=== PATIENT | male | born 1975 | race Hispanic/Latino ===

== ENCOUNTER 2019-12-22 01:51 | Emergency (ER) | payer BC ==
[2019-12-22] MEDS ORDERED: SODIUM CHLORIDE 0.9% 1000ML 1,000 ML IV ONE (01:52)
[2019-12-22] MEDS ORDERED: ACETAMINOPHEN EXTRA STRENGTH 500 MG TABLET ONE (02:45)
[2019-12-22] MEDS ORDERED: POTASSIUM BICARB/CIT AC 25 MEQ TABLET.EFF ONE (04:07)
== END 2019-12-22 05:09 | disposition home or self-care (01) ==
LOC: EDH 01:51
DX: E86.0 Dehydration (principal); R55 Syncope and collapse; E87.6 Hypokalemia; R50.9 Fever, unspecified
CPT/HCPCS: 36415; 80053; 80305; 81003; 85025; 96360; 96361; 99283; J7030

== ENCOUNTER 2019-12-22 20:04 | Emergency (ER) | payer BC ==
[2019-12-22 20:43] LABS: APPEARANCE,URINE Clear (CLEAR); BILIRUBIN,URINE Negative (NEGATIVE); COLOR,URINE Yellow (YELLOW); GLUCOSE, URINE (UA) Negative (NEGATIVE); KETONES,URINE Negative (NEGATIVE); LEUKOCYTE ESTERASE ,URINE Negative (NEGATIVE); NITRATE,URINE Negative (NEGATIVE); OCCULT BLOOD,URINE Negative (NEGATIVE); PROTEIN,URINE Negative (NEGATIVE); UROBILINOGEN,URINE 0.2 mg/dL (0.2-1.0)
[2019-12-22 20:53] LABS: BASOPHILS % (AUTO) 0.1 % (0.0-5.0); EOSINOPHILS % (AUTO) 0.2 % (0.0-8.0); HEMATOCRIT 39.4 % (42-54); LYMPHOCYTES % (AUTO) 10.2 % (21.0-51.0); MEAN CORPUSCULAR HEMOGLOBIN 30.8 pg (27.0-33.0); MEAN CORPUSCULAR HGB CONC 33.2 g/dL (32.0-36.0); MEAN CORPUSCULAR VOLUME 92.7 fL (79-99); MONOCYTES % (AUTO) 4.6 % (3.0-13.0); NEUTROPHILS % (AUTO) 84.5 % (40.0-77.0); PLATELET COUNT (AUTO) 138 K/uL (130-400); RED BLOOD CELL COUNT(AUTO) 4.25 MIL/uL (4.50-6.20); RED CELL DISTRIBUTION WIDTH 12.9 % (11.0-15.5); WHITE BLOOD COUNT (AUTO) 8.1 K/uL (4.8-10.8)
[2019-12-22 20:58] LABS: AMPHET/METH SCREEN,URINE NEGATIVE (NEGATIVE); BARBITURATE SCREEN, URINE NEGATIVE (NEGATIVE); BENZODIAZEPINES SCREEN,URINE NEGATIVE (NEGATIVE); CANNABINOID SCREEN,URINE NEGATIVE (NEGATIVE); COCAINE SCREEN,URINE NEGATIVE (NEGATIVE); OPIATE SCREEN,URINE NEGATIVE (NEGATIVE); PHENCYCLIDINE SCREEN,URINE NEGATIVE (NEGATIVE)
[2019-12-22 21:12] LABS: POTASSIUM 4.3 mmol/L (3.5-5.1)
[2019-12-22 21:16] LABS: ALBUMIN 3.9 g/dL (3.5-5.0); BILIRUBIN,TOTAL 0.2 mg/dL (0.2-1.0); TOTAL PROTEIN, SERUM 7.4 g/dL (6.0-8.3)
[2019-12-22] MEDS ORDERED: ACETAMINOPHEN EXTRA STRENGTH 500 MG TABLET ONE (22:12)
[2019-12-22] MEDS ORDERED: OSELTAMIVIR PHOSPHATE 75 MG CAP ONE (22:17)
== END 2019-12-23 00:06 | disposition home or self-care (01) ==
LOC: EDH 20:04
DX: J11.1 Influenza due to unidentified influenza virus with other respiratory manifestations (principal); R03.0 Elevated blood-pressure reading, without diagnosis of hypertension; R20.2 Paresthesia of skin; M10.9 Gout, unspecified
CPT/HCPCS: 36415; 71045; 80053; 80305; 82550; 84484; 85025; 85378; 87804; 93005

== ENCOUNTER 2019-12-25 15:27 | Inpatient (IN) | payer BC ==
[~2019-12-25] VITALS: Ht 172.7 cm; Wt 70.6 kg
[2019-12-25 16:38] LABS: BASOPHILS % (AUTO) 0.1 % (0.0-5.0); LYMPHOCYTES % (AUTO) 3.5 % (21.0-51.0); MEAN CORPUSCULAR HEMOGLOBIN 30.4 pg (27.0-33.0); MEAN CORPUSCULAR HGB CONC 33.5 g/dL (32.0-36.0); MEAN CORPUSCULAR VOLUME 90.7 fL (79-99); MONOCYTES % (AUTO) 3.3 % (3.0-13.0); NEUTROPHILS % (AUTO) 92.7 % (40.0-77.0); PLATELET COUNT (AUTO) 166 K/uL (130-400); RED BLOOD CELL COUNT(AUTO) 4.08 MIL/uL (4.50-6.20); WHITE BLOOD COUNT (AUTO) 11.4 K/uL (4.8-10.8)
[2019-12-25 16:53] LABS: CREATININE 1.1 mg/dL (0.5-1.5); POTASSIUM 4.3 mmol/L (3.5-5.1)
[2019-12-25 16:57] LABS: ALBUMIN 3.5 g/dL (3.5-5.0); BILIRUBIN,TOTAL 0.7 mg/dL (0.2-1.0); TOTAL PROTEIN, SERUM 8.1 g/dL (6.0-8.3)
[2019-12-25] MEDS ORDERED: ACETAMINOPHEN EXTRA STRENGTH 500 MG TABLET ONE (17:42)
[2019-12-25] MEDS ORDERED: ERGOCALCIFEROL (VITAMIN D2) 50,000 UNIT CAPSULE PO ONE (22:30)
[2019-12-25] MEDS ORDERED: ACETAMINOPHEN 325 MG TAB PO PRN (22:45)
[2019-12-26] VITALS (7 sets, daily range): BP systolic 116–125; BP diastolic 59–86
[2019-12-26 05:19] LABS: HEMATOCRIT 36.4 % (42-54); MEAN CORPUSCULAR HEMOGLOBIN 30.8 pg (27.0-33.0); MEAN CORPUSCULAR HGB CONC 33.5 g/dL (32.0-36.0); MEAN CORPUSCULAR VOLUME 91.9 fL (79-99); RED BLOOD CELL COUNT(AUTO) 3.96 MIL/uL (4.50-6.20)
[2019-12-26 05:38] LABS: ALBUMIN 3.2 g/dL (3.5-5.0); BILIRUBIN,TOTAL 0.6 mg/dL (0.2-1.0); CREATININE 1.1 mg/dL (0.5-1.5); POTASSIUM 4.2 mmol/L (3.5-5.1); TOTAL PROTEIN, SERUM 7.7 g/dL (6.0-8.3)
[2019-12-26 05:51] LABS: CRP QUANTITATIVE 193.5 mg/L (0.00-9.0)
[2019-12-26] MEDS ORDERED: ALBU8.5H8 IH (06:21)
[2019-12-26] MEDS ORDERED: DEXA4TAB PO (06:21)
[2019-12-26] MEDS ORDERED: AZIT250T9 PO (06:21)
[2019-12-26] MEDS ORDERED: OSEL75 PO (06:21)
[2019-12-26] MEDS ORDERED: ALBUTEROL INHALER 90MCG/INH IH PRN (06:30)
[2019-12-26] MEDS: ZINC SULFATE 220 CAPSULE PO SCH (08:30)
[2019-12-26] MEDS: ASCORBIC ACID 500 MG TAB PO SCH (08:30)
[2019-12-26] MEDS: FAMOTIDINE 20MG TAB 20 MG TAB PO SCH ×2 (08:31→20:53)
[2019-12-26] MEDS: AZITHROMYCIN 250 MG TABLET PO SCH (08:31)
[2019-12-26] MEDS: OSELTAMIVIR PHOSPHATE 75 MG CAP PO SCH ×2 (08:31→20:53)
[2019-12-26] MEDS ORDERED: DEXAMETHASONE 4 MG TAB PO SCH (09:00)
--- NOTE | 2019-12-26 10:37 | NUR ---
DESIREE EWING/MYNOR UNABLE TO MEET WITH PATIENT SINCE HE IS IN COVID UNIT. CALLED GIRLFRIEND, NEO KEY. PER GIRLFRIEND, LIVES WITH HER AND BABY, IS INDEPENDENT WITH ADLS, NO DME IN USE, AND FEELS SAFE TO RETURN HOME ONCE DISCHARGED FROM HOSPITAL. Addendum: 12/27/19 at 1040 by LUIZ RAMIREZ RN CM Amended: Links added.
[2019-12-26] MEDS: ASPIRIN 81 MG EC TAB PO SCH (12:17)
[2019-12-26] MEDS: ENOXAPARIN SODIUM 40 MG/0.4 ML SYRINGE SQ SCH (12:17)
[2019-12-26] MEDS: METHYLPREDNISOLONE SOD SUCC 40MG/ML 1ML IVP SCH ×2 (12:17→18:52)
[2019-12-27] MEDS: METHYLPREDNISOLONE SOD SUCC 40MG/ML 1ML IVP SCH ×4 (02:17→18:51)
[2019-12-27 03:08] VITALS: BP 120/67
[2019-12-27 06:08] LABS: HEMATOCRIT 36.6 % (42-54); MEAN CORPUSCULAR HEMOGLOBIN 30.9 pg (27.0-33.0); MEAN CORPUSCULAR HGB CONC 33.6 g/dL (32.0-36.0); RED BLOOD CELL COUNT(AUTO) 3.98 MIL/uL (4.50-6.20); RED CELL DISTRIBUTION WIDTH 13.1 % (11.0-15.5); WHITE BLOOD COUNT (AUTO) 12.7 K/uL (4.8-10.8)
[2019-12-27 06:42] LABS: ALANINE AMINOTRANSFERASE 39 U/L (12-78); ASPARTATE AMINOTRANSFERASE 46 U/L (10-37); BILIRUBIN,TOTAL 0.7 mg/dL (0.2-1.0); CARBON DIOXIDE 31 mmol/L (21-32); CHLORIDE 100 mmol/L (101-111); GLOMERULAR FILTR. RATE CALC 87 mL/min (>60); GLUCOSE,RANDOM 146 mg/dL (70-105); LACTATE DEHYDROGENASE 582 U/L (81-234); POTASSIUM 4.4 mmol/L (3.5-5.1); SODIUM SERUM 138 mmol/L (136-145); TOTAL PROTEIN, SERUM 7.6 g/dL (6.0-8.3); UREA NITROGEN, BLOOD 22 mg/dL (7-18)
[2019-12-27 08:00] VITALS: BP 129/76
[2019-12-27] MEDS: OSELTAMIVIR PHOSPHATE 75 MG CAP PO SCH ×2 (08:41→22:09)
[2019-12-27] MEDS: ASPIRIN 81 MG EC TAB PO SCH (08:41)
[2019-12-27] MEDS: ZINC SULFATE 220 CAPSULE PO SCH (08:41)
[2019-12-27] MEDS: FAMOTIDINE 20MG TAB 20 MG TAB PO SCH ×2 (08:41→22:09)
[2019-12-27] MEDS: ASCORBIC ACID 500 MG TAB PO SCH (08:41)
[2019-12-27] MEDS: ENOXAPARIN SODIUM 40 MG/0.4 ML SYRINGE SQ SCH ×2 (08:42→22:12)
[2019-12-27] MEDS: AZITHROMYCIN 250 MG TABLET PO SCH (08:48)
[2019-12-27 12:00] VITALS: BP 112/64
[2019-12-27] MEDS: HYDROXYZINE HCL 25 MG TABLET PO PRN (14:26)
[2019-12-27] MEDS: BENZOCAINE/MENTH/CETYLPYRD CL 1 EACH LOZENGE MM PRN (14:27)
[2019-12-27 16:00] VITALS: BP 126/75
[2019-12-27] MEDS ORDERED: MORPHINE SULFATE 2 MG/ML 1ML SYG IVP ONE (18:55)
--- NOTE | 2019-12-27 19:45 | NUR ---
PM Assessment Received pt on bed, high back rest position, observed to be anxious, routine assessment done, plan of care discuss with all concern questions addressed. Assurance given to the pt as he claimed he was not able to sleep since he got admitted, stated medication that was given earlier Atarax did not do anything, then the Morphine he claimed also did not help him to sleep. Inform the pt that the Morphine is for pain which pt claimed what he want's is something that will be able to help him sleep. I told the pt that I will be calling the MD for some medication that will help him sleep. Meanwhile advise pt the importance of doing deep breathing exercises in term of being COVID positive. Explained on how it need to be & as much as possible to do it more often. Re-discuss current treatment plan, pt noted to have calm down & stated he is OK to have something to help him sleep around 2100. Reminded pt that I still have to page the MD.
--- NOTE | 2019-12-27 20:10 | NUR ---
Re: Anti Anxiety medication Page KASSIDY Razo at this time, waiting for call back re: pt request for anxiety/sleeping medication.
[2019-12-27 20:44] VITALS: BP 126/70
[2019-12-27] MEDS ORDERED: LORAZEPAM 2 MG/ML 1 ML VIAL IVP ONE (21:45)
--- NOTE | 2019-12-27 21:45 | NUR ---
Re: anti anxiety/sleeping medication LUNCHROOM ATTENDANT Danni called back & made aware of pt request, on Atarax claimed not effective, was given Morphine, claimed still was not able to have some sleep, order received for Ativan 0.5mg IV x 1 dose, given.
[2019-12-27] MEDS ORDERED: LORAZEPAM 2 MG/ML 1 ML VIAL ONE (22:01)
--- NOTE | 2019-12-27 22:45 | NUR ---
Re: Medication Effect Pt noted to be sleeping at this time, kept at O2 3L/NC
[2019-12-27 23:53] VITALS: BP 135/70
[2019-12-28] MEDS: METHYLPREDNISOLONE SOD SUCC 40MG/ML 1ML IVP SCH ×3 (03:04→17:53)
[2019-12-28 03:05] VITALS: BP 115/66
[2019-12-28 05:22] LABS: HEMATOCRIT 35.9 % (42-54); MEAN CORPUSCULAR HEMOGLOBIN 30.3 pg (27.0-33.0); MEAN CORPUSCULAR HGB CONC 33.1 g/dL (32.0-36.0); MEAN CORPUSCULAR VOLUME 91.3 fL (79-99); RED BLOOD CELL COUNT(AUTO) 3.93 MIL/uL (4.50-6.20); WHITE BLOOD COUNT (AUTO) 13.5 K/uL (4.8-10.8)
[2019-12-28 05:41] LABS: ALANINE AMINOTRANSFERASE 49 U/L (12-78); ALBUMIN 2.8 g/dL (3.5-5.0); ASPARTATE AMINOTRANSFERASE 40 U/L (10-37); BILIRUBIN,TOTAL 0.8 mg/dL (0.2-1.0); CARBON DIOXIDE 30 mmol/L (21-32); CHLORIDE 101 mmol/L (101-111); CREATININE 1.1 mg/dL (0.5-1.5); GLOMERULAR FILTR. RATE CALC 78 mL/min (>60); GLUCOSE,RANDOM 131 mg/dL (70-105); LACTATE DEHYDROGENASE 527 U/L (81-234); SODIUM SERUM 137 mmol/L (136-145); TOTAL PROTEIN, SERUM 7.2 g/dL (6.0-8.3); UREA NITROGEN, BLOOD 24 mg/dL (7-18)
[2019-12-28] MEDS: ASPIRIN 81 MG EC TAB PO SCH (08:34)
[2019-12-28] MEDS: ZINC SULFATE 220 CAPSULE PO SCH (08:35)
[2019-12-28] MEDS: FAMOTIDINE 20MG TAB 20 MG TAB PO SCH ×2 (08:35→22:06)
[2019-12-28] MEDS: OSELTAMIVIR PHOSPHATE 75 MG CAP PO SCH ×2 (08:35→22:06)
[2019-12-28] MEDS: ASCORBIC ACID 500 MG TAB PO SCH (08:35)
[2019-12-28] MEDS: ENOXAPARIN SODIUM 40 MG/0.4 ML SYRINGE SQ SCH ×2 (08:36→22:09)
[2019-12-28 08:37] VITALS: BP 128/77
[2019-12-28 12:39] VITALS: BP 125/68
[2019-12-28] MEDS: CHLORDIAZEPOXIDE HCL 25 MG CAP PO SCH ×2 (16:16→22:06)
[2019-12-28 16:26] VITALS: BP 114/58
--- NOTE | 2019-12-28 19:40 | NUR ---
PM Assessment Received pt in bed on high back rest. Routine assessment done, plan of care discuss, pt verbalizes concern of the continued need for oxygenation. Explained to the pt that we have to keep his O2 at this time as he only saturates at 93% & once such reading will go up & stays up, & him feeling much better then we can wean it off slowly. Pt also voiced out concern of till when he needs to take the Tamiflu as this was started since last Monday. I made him aware we will notify MD in AM. Pt currently denies discomfort.
[2019-12-28 20:15] VITALS: BP 121/61
[2019-12-28 23:46] VITALS: BP 126/66
[2019-12-29] MEDS: METHYLPREDNISOLONE SOD SUCC 40MG/ML 1ML IVP SCH ×3 (02:56→17:37)
[2019-12-29 03:55] VITALS: BP 125/68
[2019-12-29 06:25] LABS: BASOPHILS % (AUTO) 0.1 % (0.0-5.0); HEMATOCRIT 38.2 % (42-54); LYMPHOCYTES % (AUTO) 6.1 % (21.0-51.0); MEAN CORPUSCULAR HEMOGLOBIN 30.7 pg (27.0-33.0); MEAN CORPUSCULAR HGB CONC 33.2 g/dL (32.0-36.0); MEAN CORPUSCULAR VOLUME 92.3 fL (79-99); MONOCYTES % (AUTO) 6.1 % (3.0-13.0); NEUTROPHILS % (AUTO) 86.3 % (40.0-77.0); PLATELET COUNT (AUTO) 324 K/uL (130-400); RED BLOOD CELL COUNT(AUTO) 4.14 MIL/uL (4.50-6.20); RED CELL DISTRIBUTION WIDTH 12.8 % (11.0-15.5); WHITE BLOOD COUNT (AUTO) 13.4 K/uL (4.8-10.8)
[2019-12-29 06:51] LABS: ALANINE AMINOTRANSFERASE 76 U/L (12-78); ALBUMIN 2.9 g/dL (3.5-5.0); ASPARTATE AMINOTRANSFERASE 48 U/L (10-37); CARBON DIOXIDE 29 mmol/L (21-32); CHLORIDE 101 mmol/L (101-111); GLOMERULAR FILTR. RATE CALC 87 mL/min (>60); GLUCOSE,RANDOM 124 mg/dL (70-105); LACTATE DEHYDROGENASE 604 U/L (81-234); POTASSIUM 4.7 mmol/L (3.5-5.1); SODIUM SERUM 139 mmol/L (136-145); TOTAL PROTEIN, SERUM 7.4 g/dL (6.0-8.3); UREA NITROGEN, BLOOD 25 mg/dL (7-18)
[2019-12-29 08:00] VITALS: BP 129/70
[2019-12-29] MEDS: ASCORBIC ACID 500 MG TAB PO SCH (08:34)
[2019-12-29] MEDS: OSELTAMIVIR PHOSPHATE 75 MG CAP PO SCH ×2 (08:35→20:55)
[2019-12-29] MEDS: ASPIRIN 81 MG EC TAB PO SCH (08:35)
[2019-12-29] MEDS: FAMOTIDINE 20MG TAB 20 MG TAB PO SCH ×2 (08:35→20:55)
[2019-12-29] MEDS: ZINC SULFATE 220 CAPSULE PO SCH (08:35)
[2019-12-29] MEDS: CHLORDIAZEPOXIDE HCL 25 MG CAP PO SCH ×3 (08:35→21:26)
[2019-12-29] MEDS: ENOXAPARIN SODIUM 40 MG/0.4 ML SYRINGE SQ SCH ×2 (08:37→20:57)
[2019-12-29 12:00] VITALS: BP 142/73
[2019-12-29] MEDS ORDERED: ALPRAZOLAM 0.25 MG TABLET PO SCH (15:45)
[2019-12-29 16:00] VITALS: BP 114/59
[2019-12-29] MEDS: DEXAMETHASONE 4 MG TAB PO SCH ×2 (17:39→20:55)
[2019-12-29 20:04] VITALS: BP 129/64
[2019-12-30 00:05] VITALS: BP 118/74
[2019-12-30 04:04] VITALS: BP 102/56
--- NOTE | 2019-12-30 04:10 | NUR ---
O2 SAT 88%, WALKED IN TO FIND PATIENT WITH HOB ELEVATED. STATES FELL ASLEEP, WOKE UP TO FIND NASAL CANNULA OFF AND OVER HIS HEAD. STATES HAS BEEN OCCASIONALLY TURNING SIDE TO SIDE THROUGHOUT SHIFT AND HAS BEEN DOING BREATHING EXERCISES INSTRUCTED AT BEGINNING OF SHIFT. AGREED TO PRONE POSITION ONLY ONCE DURING SHIFT.
[2019-12-30 06:05] LABS: BASOPHILS % (AUTO) 0.2 % (0.0-5.0); LYMPHOCYTES % (AUTO) 5.1 % (21.0-51.0); MEAN CORPUSCULAR HEMOGLOBIN 30.3 pg (27.0-33.0); MEAN CORPUSCULAR HGB CONC 33.2 g/dL (32.0-36.0); MEAN CORPUSCULAR VOLUME 91.3 fL (79-99); NEUTROPHILS % (AUTO) 87.9 % (40.0-77.0); PLATELET COUNT (AUTO) 343 K/uL (130-400); RED BLOOD CELL COUNT(AUTO) 4.16 MIL/uL (4.50-6.20); RED CELL DISTRIBUTION WIDTH 12.7 % (11.0-15.5); WHITE BLOOD COUNT (AUTO) 12.3 K/uL (4.8-10.8)
[2019-12-30 06:28] LABS: ALANINE AMINOTRANSFERASE 104 U/L (12-78); ASPARTATE AMINOTRANSFERASE 39 U/L (10-37); CARBON DIOXIDE 27 mmol/L (21-32); CHLORIDE 103 mmol/L (101-111); CREATININE 1.1 mg/dL (0.5-1.5); GLOMERULAR FILTR. RATE CALC 78 mL/min (>60); GLUCOSE,RANDOM 123 mg/dL (70-105); LACTATE DEHYDROGENASE 606 U/L (81-234); POTASSIUM 5.1 mmol/L (3.5-5.1); SODIUM SERUM 138 mmol/L (136-145); TOTAL PROTEIN, SERUM 7.4 g/dL (6.0-8.3); UREA NITROGEN, BLOOD 29 mg/dL (7-18)
[2019-12-30] MEDS: ENOXAPARIN SODIUM 40 MG/0.4 ML SYRINGE SQ SCH ×2 (07:58→20:32)
[2019-12-30] MEDS: CHLORDIAZEPOXIDE HCL 25 MG CAP PO SCH ×3 (07:59→20:31)
[2019-12-30] MEDS: ASCORBIC ACID 500 MG TAB PO SCH (07:59)
[2019-12-30] MEDS: ASPIRIN 81 MG EC TAB PO SCH (07:59)
[2019-12-30] MEDS: ZINC SULFATE 220 CAPSULE PO SCH (07:59)
[2019-12-30 08:00] VITALS: BP_SYST 123; BP_SYST 97; BP_DIAS 44; BP_DIAS 74
[2019-12-30] MEDS: OSELTAMIVIR PHOSPHATE 75 MG CAP PO SCH ×2 (08:00→20:31)
[2019-12-30] MEDS: FAMOTIDINE 20MG TAB 20 MG TAB PO SCH ×2 (08:00→20:31)
[2019-12-30] MEDS: DEXAMETHASONE 4 MG TAB PO SCH (08:02)
--- NOTE | 2019-12-30 08:17 | NUR ---
Patient placed on non-rebreather after VS showed 02 sat pof 83% on 3L NC Addendum: 12/30/19 at 0819 by HERSON MORENO RN RN sat of*
[2019-12-30 11:00] VITALS: BP 121/58
[2019-12-30 16:00] VITALS: BP 110/54
[2019-12-30 19:30] VITALS: BP 114/58
[2019-12-31] VITALS (18 sets, daily range): BP systolic 81–115; BP diastolic 37–62
[2019-12-31] MEDS: HYDROXYZINE HCL 25 MG TABLET PO PRN ×2 (00:54→21:01)
[2019-12-31 03:58] LABS: BASOPHILS % (AUTO) 0.1 % (0.0-5.0); EOSINOPHILS % (AUTO) 0.3 % (0.0-8.0); HEMATOCRIT 38.4 % (42-54); LYMPHOCYTES % (AUTO) 5.1 % (21.0-51.0); MEAN CORPUSCULAR HEMOGLOBIN 30.3 pg (27.0-33.0); MEAN CORPUSCULAR HGB CONC 33.1 g/dL (32.0-36.0); MEAN CORPUSCULAR VOLUME 91.6 fL (79-99); MONOCYTES % (AUTO) 2.3 % (3.0-13.0); NEUTROPHILS % (AUTO) 90.7 % (40.0-77.0); PLATELET COUNT (AUTO) 333 K/uL (130-400); RED BLOOD CELL COUNT(AUTO) 4.19 MIL/uL (4.50-6.20); RED CELL DISTRIBUTION WIDTH 12.3 % (11.0-15.5)
[2019-12-31 04:18] LABS: ALANINE AMINOTRANSFERASE 88 U/L (12-78); ALBUMIN 2.8 g/dL (3.5-5.0); ASPARTATE AMINOTRANSFERASE 32 U/L (10-37); BILIRUBIN,TOTAL 1.1 mg/dL (0.2-1.0); CARBON DIOXIDE 28 mmol/L (21-32); CHLORIDE 101 mmol/L (101-111); CREATININE 1.3 mg/dL (0.5-1.5); GLOMERULAR FILTR. RATE CALC 64 mL/min (>60); GLUCOSE,RANDOM 96 mg/dL (70-105); LACTATE DEHYDROGENASE 550 U/L (81-234); POTASSIUM 4.8 mmol/L (3.5-5.1); SODIUM SERUM 137 mmol/L (136-145); UREA NITROGEN, BLOOD 31 mg/dL (7-18)
[2019-12-31] MEDS ORDERED: ALBUTEROL INHALER 90MCG/INH IH PRN (07:15)
[2019-12-31] MEDS: ASCORBIC ACID 500 MG TAB PO SCH (08:37)
[2019-12-31] MEDS: ZINC SULFATE 220 CAPSULE PO SCH (08:37)
[2019-12-31] MEDS: OSELTAMIVIR PHOSPHATE 75 MG CAP PO SCH (08:38)
[2019-12-31] MEDS: FAMOTIDINE 20MG TAB 20 MG TAB PO SCH ×2 (08:38→21:00)
[2019-12-31] MEDS: ENOXAPARIN SODIUM 40 MG/0.4 ML SYRINGE SQ SCH ×2 (08:39→21:09)
[2019-12-31] MEDS: ASPIRIN 81 MG EC TAB PO SCH (08:40)
[2019-12-31] MEDS: CHLORDIAZEPOXIDE HCL 25 MG CAP PO SCH ×2 (08:44→13:53)
[2019-12-31] MEDS ORDERED: DEXAMETHASONE 4 MG TAB PO SCH (09:00)
[2019-12-31] MEDS ORDERED: DEXAMETHASONE SOD PHOSPHATE 4 MG/ML 1ML VIAL IVP SCH (09:30)
[2019-12-31] MEDS: ACETYLCYSTEINE 600 MG CAPSULE PO SCH ×2 (10:44→21:00)
--- NOTE | 2019-12-31 13:15 | NUR ---
Patient transferred to ICU after being in respiratory distress. Patient placed on additional 6L NC with 15L non rebreather mask. VS recorded in chart prior to transfer. Patient alert and oriented, no complaints of pain. However he repeatedly stated "it's hard for me to breathe" Primary team and Respiratory MD made aware of change of condition. Report called to JOHN Rubio. Patient's emergency contact Anastasia made aware.
--- NOTE | 2019-12-31 13:16 | NUR ---
PRONE POSITION, ON LIBRIIUM, O2 SAT 92% ON 8L NASAL CANNULA WITH HUMIDIFIER, PT REMOVED NON REBREATHER MASK. VS STABLE, WILL CONTINUE TO MONITOR
[2019-12-31] MEDS ORDERED: REMDESIVIR (INVESTIGATIONAL) 200 MG in SODIUM CHLORIDE 0.9% 250 ML IV SCH (16:00)
--- NOTE | 2019-12-31 16:34 | NUR ---
PT SPOKE TO SPOUSE AT THIS TIME. VS STABLE.. STILL PRONE POSITION
[2019-12-31] MEDS: GUAIFENESIN-DM 200/20 MG 10 ML PO PRN (17:12)
[2019-12-31] MEDS: ACETAMINOPHEN 325 MG TAB PO PRN ×2 (17:13→21:01)
[2019-12-31] MEDS ORDERED: IOHEXOL-350 50ML VIAL IV ONE (17:34)
[2019-12-31] MEDS: DEXAMETHASONE SOD PHOSPHATE 4 MG/ML 1ML VIAL IVP SCH (20:59)
[2019-12-31] MEDS: BENZOCAINE/MENTH/CETYLPYRD CL 1 EACH LOZENGE MM PRN (21:00)
[2020-01-01] VITALS (26 sets, daily range): BP systolic 78–120; BP diastolic 38–68
[2020-01-01 04:50] LABS: BASOPHILS % (AUTO) 0.1 % (0.0-5.0); EOSINOPHILS % (AUTO) 0.1 % (0.0-8.0); HEMATOCRIT 38.4 % (42-54); LYMPHOCYTES % (AUTO) 3.2 % (21.0-51.0); MEAN CORPUSCULAR HEMOGLOBIN 29.9 pg (27.0-33.0); MEAN CORPUSCULAR HGB CONC 32.8 g/dL (32.0-36.0); MONOCYTES % (AUTO) 1.4 % (3.0-13.0); NEUTROPHILS % (AUTO) 94.1 % (40.0-77.0); PLATELET COUNT (AUTO) 324 K/uL (130-400); RED BLOOD CELL COUNT(AUTO) 4.22 MIL/uL (4.50-6.20); RED CELL DISTRIBUTION WIDTH 12.4 % (11.0-15.5); WHITE BLOOD COUNT (AUTO) 13.1 K/uL (4.8-10.8)
[2020-01-01 05:12] LABS: ALBUMIN 2.4 g/dL (3.5-5.0); CREATININE 1.1 mg/dL (0.5-1.5); POTASSIUM 5.3 mmol/L (3.5-5.1); TOTAL PROTEIN, SERUM 7.2 g/dL (6.0-8.3)
[2020-01-01 05:45] LABS: CRP QUANTITATIVE 433.5 mg/L (0.00-9.0)
[2020-01-01] MEDS ORDERED: SODIUM CHLORIDE 0.9% 500ML 500 ML IV ONE (08:22)
[2020-01-01] MEDS: ACETAMINOPHEN 325 MG TAB PO PRN (08:41)
[2020-01-01] MEDS: ONDANSETRON HCL 4 MG/2 ML VIAL IV PRN ×2 (08:41→13:27)
[2020-01-01] MEDS: ASCORBIC ACID 500 MG TAB PO SCH (08:42)
[2020-01-01] MEDS: ACETYLCYSTEINE 600 MG CAPSULE PO SCH ×2 (08:42→20:59)
[2020-01-01] MEDS: ASPIRIN 81 MG EC TAB PO SCH (08:42)
[2020-01-01] MEDS: FAMOTIDINE 20MG TAB 20 MG TAB PO SCH ×2 (08:42→20:59)
[2020-01-01] MEDS: DEXAMETHASONE SOD PHOSPHATE 4 MG/ML 1ML VIAL IVP SCH ×3 (08:43→20:59)
[2020-01-01] MEDS: ZINC SULFATE 220 CAPSULE PO SCH (08:44)
[2020-01-01] MEDS: ENOXAPARIN SODIUM 40 MG/0.4 ML SYRINGE SQ SCH ×2 (08:45→20:59)
--- NOTE | 2020-01-01 08:45 | NUR ---
O2 SAT DOWN WHEN UP IN SITTING POSITION FOR BREAKFAST. CREPITUS NOTED TO CLAVICLE AREA. PT STATES IT HAS BEEN THERE FOR A FEW DAYS. MD AWARE, WILL CONTINUE TO MONITOR.
--- NOTE | 2020-01-01 09:15 | NUR ---
PRONE POSITION. PT TOLERATING, WITH INCREASED OXYGENATION
--- NOTE | 2020-01-01 10:00 | NUR ---
UPDATE TO SPOUSE GIVEN
[2020-01-01] MEDS: GUAIFENESIN-DM 200/20 MG 10 ML PO PRN (13:26)
[2020-01-01] MEDS: HYDROXYZINE HCL 25 MG TABLET PO PRN ×2 (13:40→21:00)
[2020-01-01] MEDS: BENZOCAINE/MENTH/CETYLPYRD CL 1 EACH LOZENGE MM PRN ×2 (13:41→21:07)
--- NOTE | 2020-01-01 14:00 | NUR ---
PT ABLE TO LAY ON RIGHT SIDE WITH O2 SAT OF 93% WITH NON REBREATHER MASK. SITS UP AND SPO2 GOES DOWN. PT HAS BEEN PRONE ALL DAY EXCEPT FOR MEALS
[2020-01-01] MEDS: REMDESIVIR (INVESTIGATIONAL) 100 MG in SODIUM CHLORIDE 0.9% 250 ML IV SCH (15:27)
[2020-01-01] MEDS ORDERED: PROPOFOL 1000 MG/100 ML 0 ML IV ONE (15:42)
--- NOTE | 2020-01-01 16:00 | NUR ---
PT FEELS GOOD ENOUGH TO USE HIS OWN CELL PHONE AT THIS TIME. VS STABLE
[2020-01-01] MEDS: SODIUM CHLORIDE 30 ML DROPS NS PRN (20:59)
[2020-01-02] VITALS (21 sets, daily range): BP systolic 73–126; BP diastolic 32–61
[2020-01-02 04:22] LABS: BASOPHILS % (AUTO) 0.1 % (0.0-5.0); EOSINOPHILS % (AUTO) 0.1 % (0.0-8.0); HEMATOCRIT 37.9 % (42-54); LYMPHOCYTES % (AUTO) 2.6 % (21.0-51.0); MEAN CORPUSCULAR HEMOGLOBIN 30.3 pg (27.0-33.0); MEAN CORPUSCULAR HGB CONC 32.5 g/dL (32.0-36.0); MEAN CORPUSCULAR VOLUME 93.3 fL (79-99); MONOCYTES % (AUTO) 1.7 % (3.0-13.0); NEUTROPHILS % (AUTO) 94.2 % (40.0-77.0); PLATELET COUNT (AUTO) 244 K/uL (130-400); RED BLOOD CELL COUNT(AUTO) 4.06 MIL/uL (4.50-6.20); RED CELL DISTRIBUTION WIDTH 12.4 % (11.0-15.5); WHITE BLOOD COUNT (AUTO) 13.2 K/uL (4.8-10.8)
[2020-01-02 05:14] LABS: ALBUMIN 2.4 g/dL (3.5-5.0); BILIRUBIN,TOTAL 0.6 mg/dL (0.2-1.0); CREATININE 1.1 mg/dL (0.5-1.5); POTASSIUM 4.5 mmol/L (3.5-5.1); TOTAL PROTEIN, SERUM 7.2 g/dL (6.0-8.3)
[2020-01-02] MEDS: ZINC SULFATE 220 CAPSULE PO SCH (08:04)
[2020-01-02] MEDS: ACETYLCYSTEINE 600 MG CAPSULE PO SCH ×2 (08:04→21:01)
[2020-01-02] MEDS: ASCORBIC ACID 500 MG TAB PO SCH (08:31)
[2020-01-02] MEDS: DEXAMETHASONE SOD PHOSPHATE 4 MG/ML 1ML VIAL IVP SCH ×3 (08:31→21:01)
[2020-01-02] MEDS: ASPIRIN 81 MG EC TAB PO SCH (08:31)
[2020-01-02] MEDS: FAMOTIDINE 20MG TAB 20 MG TAB PO SCH ×2 (08:31→21:01)
[2020-01-02] MEDS: ENOXAPARIN SODIUM 40 MG/0.4 ML SYRINGE SQ SCH ×2 (08:49→21:02)
[2020-01-02] MEDS ORDERED: FLUTICASONE PROPIONATE HFA 220 MCG/PUFF 12 GM INHR IH SCH (11:15)
[2020-01-02] MEDS: SODIUM CHLORIDE 30 ML DROPS NS PRN (11:45)
[2020-01-02] MEDS: HYDROXYZINE HCL 25 MG TABLET PO PRN (11:45)
[2020-01-02] MEDS: ACETAMINOPHEN 325 MG TAB PO PRN (11:46)
[2020-01-02] MEDS: KETOROLAC TROMETHAMINE 30MG/ML IV SCH (11:46)
[2020-01-02] MEDS: FLUTICASONE PROPIONATE 50MCG/SPRAY 16 GM BOTTLE EN SCH (12:24)
--- NOTE | 2020-01-02 12:29 | NUR ---
RDSCREEN - LOS X 8 Pt positive for COVID-19. Regular diet order in place. No complaint of GI distress. PO % unknown. Called Pt room - No answer. Pt LBM 12/30/19. WBC 13.2. Vitamin C QD in place. Prone positioning, Nonrebreather mask per EMR. Recommend 500mg Vitamin C (BID), 220mg ZnSO4 (QD), MVI (QD) Recommend 60mL ProMod QD RD to continue to monitor. Please notify as additional nutrition concerns arise. Thank you.
[2020-01-02] MEDS ORDERED: COMPOUND IV REFRIGERATED 1 EACH IVSOLN MISC PRN (14:15)
[2020-01-02] MEDS: REMDESIVIR (INVESTIGATIONAL) 100 MG in SODIUM CHLORIDE 0.9% 250 ML IV SCH (16:13)
[2020-01-03] VITALS (15 sets, daily range): BP systolic 92–127; BP diastolic 37–72
[2020-01-03 06:09] LABS: BASOPHILS % (AUTO) 0.1 % (0.0-5.0); HEMATOCRIT 38.5 % (42-54); LYMPHOCYTES % (AUTO) 2.1 % (21.0-51.0); MEAN CORPUSCULAR HEMOGLOBIN 30.2 pg (27.0-33.0); MEAN CORPUSCULAR VOLUME 91.4 fL (79-99); MONOCYTES % (AUTO) 1.6 % (3.0-13.0); NEUTROPHILS % (AUTO) 95.3 % (40.0-77.0); PLATELET COUNT (AUTO) 284 K/uL (130-400); RED BLOOD CELL COUNT(AUTO) 4.21 MIL/uL (4.50-6.20); RED CELL DISTRIBUTION WIDTH 12.6 % (11.0-15.5)
[2020-01-03 06:55] LABS: ALBUMIN 2.3 g/dL (3.5-5.0); BILIRUBIN,TOTAL 0.5 mg/dL (0.2-1.0); CREATININE 0.9 mg/dL (0.5-1.5); CRP QUANTITATIVE 71.5 mg/L (0.00-9.0); POTASSIUM 4.7 mmol/L (3.5-5.1); TOTAL PROTEIN, SERUM 6.8 g/dL (6.0-8.3)
[2020-01-03] MEDS: FLUTICASONE PROPIONATE 50MCG/SPRAY 16 GM BOTTLE EN SCH (08:01)
[2020-01-03] MEDS: ENOXAPARIN SODIUM 40 MG/0.4 ML SYRINGE SQ SCH ×2 (08:02→20:26)
[2020-01-03] MEDS: ASPIRIN 81 MG EC TAB PO SCH (08:03)
[2020-01-03] MEDS: ASCORBIC ACID 500 MG TAB PO SCH (08:03)
[2020-01-03] MEDS: FAMOTIDINE 20MG TAB 20 MG TAB PO SCH ×2 (08:03→20:27)
[2020-01-03] MEDS: ZINC SULFATE 220 CAPSULE PO SCH (08:03)
[2020-01-03] MEDS: ACETYLCYSTEINE 600 MG CAPSULE PO SCH ×2 (08:46→20:26)
[2020-01-03] MEDS: DEXAMETHASONE SOD PHOSPHATE 4 MG/ML 1ML VIAL IVP SCH ×3 (08:46→20:26)
[2020-01-03] MEDS ORDERED: KETOROLAC TROMETHAMINE 30MG/ML IV PRN (12:00)
[2020-01-03] MEDS: KETOROLAC TROMETHAMINE 30MG/ML IV SCH (12:02)
[2020-01-03] MEDS: GUAIFENESIN-DM 200/20 MG 10 ML PO PRN (12:02)
[2020-01-03] MEDS: ACETAMINOPHEN 325 MG TAB PO PRN ×2 (12:03→18:02)
[2020-01-03] MEDS: HYDROXYZINE HCL 25 MG TABLET PO PRN ×2 (12:18→17:58)
[2020-01-03] MEDS: DOCUSATE SODIUM 100 MG CAP PO SCH (12:21)
[2020-01-03] MEDS: POLYETHYLENE GLYCOL 3350 17 GM POWD.PACK PO SCH (12:21)
[2020-01-03] MEDS: REMDESIVIR (INVESTIGATIONAL) 100 MG in SODIUM CHLORIDE 0.9% 250 ML IV SCH (15:21)
--- NOTE | 2020-01-03 17:00 | NUR ---
TRANSFERED TO PCCU. VS STABLE SBAR REPORT, PT WITH ANXIETY, GAVE PAIN MEDS AND ANXIETY MEDS AFTER TRANSFER
--- NOTE | 2020-01-03 18:00 | NUR ---
NOTE ARRIVED A TRANSFER FROM ICU. WAS REPORTED HE WAS ON NRB 100% AND NASAL CANULA BUT THERE IS ONLY ONE CONNECTION FOR O2. SHE WILL BE ON NRB AND WILL INFORM R.T. ABOUT NASAL CANULA SET UP. HE NEEDS TO BE WITH HOB ELEVATED. HAS BEEN ENCOURAGED TO PRONE POSITION AND HE HAS BEEN DOING SO IN ICU BUT HE NEEDS PAIN MEDS PRIOR THOUGH. ICU NURSE MARY MEDICATED HIM FOR PAIN AND ANXIETY WELL. CONTINUES WITH STEROIDS AND LOVENOX. HE IS SATURATING 90-91% ON NRB. INSTRUCTED TO CONTROL HIS BREATHING AND FOCUS ON IT. HE WILL BE ON TELEMETRY.
[2020-01-04 00:52] VITALS: BP 102/51
[2020-01-04 04:44] VITALS: BP 118/56
[2020-01-04 05:35] LABS: HEMATOCRIT 40.5 % (42-54); MEAN CORPUSCULAR HEMOGLOBIN 30.6 pg (27.0-33.0); MEAN CORPUSCULAR HGB CONC 33.6 g/dL (32.0-36.0); PLATELET COUNT (AUTO) 292 K/uL (130-400); RED BLOOD CELL COUNT(AUTO) 4.45 MIL/uL (4.50-6.20); RED CELL DISTRIBUTION WIDTH 12.5 % (11.0-15.5)
[2020-01-04 05:46] LABS: ALBUMIN 2.5 g/dL (3.5-5.0); BILIRUBIN,TOTAL 0.5 mg/dL (0.2-1.0); CREATININE 1.1 mg/dL (0.5-1.5); POTASSIUM 4.7 mmol/L (3.5-5.1)
[2020-01-04 06:31] LABS: BAND NEUTROPHILS % (MANUAL) 1 % (0-2); LYMPHOCYTES % (MANUAL) 4 % (22-44); MONOCYTES % (MANUAL) 2 % (2-9); SEGMENTED NEUTROPHILS % 93 % (40-70)
[2020-01-04 06:32] LABS: MAN.DIFF COMMENT-IMPRESSION MANUAL DIFFERENTIAL
--- NOTE | 2020-01-04 08:00 | NUR ---
NOTE AAOX3. SEEMS SOB WITH MINIMAL EXERTION. I ASKED HIM TO SIT AT EDGE OF BED AND HE HAD TO IMMEDIATELY LAY DOWN AND CATH HIS BREATH. HE SEEMED A LITTLE ANXIOUS WELL. I ENCOURAGED HIM TO PRONE AND CHANGE POSITIONS DURING THE DAY. REMAINS ON NRB AT 100%. NO COUGH NOTED. BBS CLEAR TO ALL LOBES JUST A LITTLE DIMINISHED. SATURATIONS HAVE BEEN LOW 90'S DURING THE NIGHT.
[2020-01-04] MEDS: FLUTICASONE PROPIONATE 50MCG/SPRAY 16 GM BOTTLE EN SCH (09:00)
[2020-01-04] MEDS: FAMOTIDINE 20MG TAB 20 MG TAB PO SCH (09:00)
[2020-01-04] MEDS: ASPIRIN 81 MG EC TAB PO SCH (09:11)
[2020-01-04] MEDS: DEXAMETHASONE SOD PHOSPHATE 4 MG/ML 1ML VIAL IVP SCH ×3 (09:11→22:18)
[2020-01-04] MEDS: ACETYLCYSTEINE 600 MG CAPSULE PO SCH ×2 (09:12→22:18)
[2020-01-04] MEDS: DOCUSATE SODIUM 100 MG CAP PO SCH (09:14)
[2020-01-04] MEDS: POLYETHYLENE GLYCOL 3350 17 GM POWD.PACK PO SCH (09:14)
[2020-01-04] MEDS: ENOXAPARIN SODIUM 40 MG/0.4 ML SYRINGE SQ SCH ×2 (09:14→22:19)
[2020-01-04] MEDS: ZINC SULFATE 220 CAPSULE PO SCH (09:14)
[2020-01-04] MEDS: ASCORBIC ACID 500 MG TAB PO SCH (09:14)
[2020-01-04] MEDS: KETOROLAC TROMETHAMINE 30MG/ML IV SCH (09:15)
[2020-01-04 09:25] VITALS: BP 97/60
[2020-01-04 11:18] VITALS: BP 104/73
[2020-01-04] MEDS ORDERED: SODIUM CHLORIDE 0.9% 250 ML IV ONE (14:17)
[2020-01-04] MEDS ORDERED: PANTOPRAZOLE SODIUM 40 MG TABLET.DR ONE (14:39)
[2020-01-04] MEDS: PANTOPRAZOLE SODIUM 40 MG TABLET.DR PO SCH (15:15)
[2020-01-04] MEDS: REMDESIVIR (INVESTIGATIONAL) 100 MG in SODIUM CHLORIDE 0.9% 250 ML IV SCH (15:46)
[2020-01-04 16:01] VITALS: BP 131/62
--- NOTE | 2020-01-04 18:00 | NUR ---
NOTE PATIENT COMPLIED WITH RECOMMENDATIONS TO CHANGE POSITIONS, WORK ON CONTROLLING ANXIETY AND PRONING. HE IS SATING 100% ON NRB. HAS BEEN USING SALINE MIST AND WAS ABLE TO BRING UP SOME SPUTUM. HE ALSO RECEIVED ONE UNIT OF CCP AND GOT HIS LAST DOSE OF REMDESIVIR. HE SEEMD IN BETTER SPIRITS THAN THIS AM AND SATS BETTER WELL THOUGH CXR SHOWS WORSENING CONDITION.
[2020-01-04 20:40] VITALS: BP 122/78
[2020-01-05] VITALS (7 sets, daily range): BP systolic 97–120; BP diastolic 57–74
[2020-01-05 04:38] LABS: BASOPHILS % (AUTO) 0.1 % (0.0-5.0); HEMATOCRIT 38.5 % (42-54); LYMPHOCYTES % (AUTO) 2.8 % (21.0-51.0); MEAN CORPUSCULAR HEMOGLOBIN 30.3 pg (27.0-33.0); MEAN CORPUSCULAR HGB CONC 33.5 g/dL (32.0-36.0); MEAN CORPUSCULAR VOLUME 90.4 fL (79-99); MONOCYTES % (AUTO) 3.2 % (3.0-13.0); NEUTROPHILS % (AUTO) 92.3 % (40.0-77.0); PLATELET COUNT (AUTO) 307 K/uL (130-400); RED BLOOD CELL COUNT(AUTO) 4.26 MIL/uL (4.50-6.20); RED CELL DISTRIBUTION WIDTH 12.5 % (11.0-15.5); WHITE BLOOD COUNT (AUTO) 14.1 K/uL (4.8-10.8)
[2020-01-05 05:09] LABS: ALBUMIN 2.5 g/dL (3.5-5.0); BILIRUBIN,TOTAL 0.5 mg/dL (0.2-1.0); CRP QUANTITATIVE 20.7 mg/L (0.00-9.0); POTASSIUM 5.1 mmol/L (3.5-5.1); TOTAL PROTEIN, SERUM 6.7 g/dL (6.0-8.3)
--- NOTE | 2020-01-05 08:00 | NUR ---
NOTE HE HAS BEEN DOING WELL THIS AM. HE HAS BEEN SITTING IN THE EDGE OF BED DURING THE NIGHT AND THIS AM LOOKS LESS SOB AD DOES NOT HAVE A BLANK, ANXIOUS LOOK ON HIS FACE. HE REMAINS ON O2@100% NRB. SATS 98% TO 100%. NO COUGH OR ANY OTHER PROBLEMS. REPORTS CONSTIPATION. HE IS RECEIVING STOOL SOFTENER AND WILL GIVE HIM PRUNE JUICE WELL.
[2020-01-05] MEDS: ASCORBIC ACID 500 MG TAB PO SCH (08:32)
[2020-01-05] MEDS: FLUTICASONE PROPIONATE 50MCG/SPRAY 16 GM BOTTLE EN SCH (08:32)
[2020-01-05] MEDS: ASPIRIN 81 MG EC TAB PO SCH (08:32)
[2020-01-05] MEDS: DEXAMETHASONE SOD PHOSPHATE 4 MG/ML 1ML VIAL IVP SCH ×3 (08:32→21:14)
[2020-01-05] MEDS: PANTOPRAZOLE SODIUM 40 MG TABLET.DR PO SCH (08:32)
[2020-01-05] MEDS: ZINC SULFATE 220 CAPSULE PO SCH (08:32)
[2020-01-05] MEDS: KETOROLAC TROMETHAMINE 30MG/ML IV SCH (08:33)
[2020-01-05] MEDS: DOCUSATE SODIUM 100 MG CAP PO SCH (08:33)
[2020-01-05] MEDS: POLYETHYLENE GLYCOL 3350 17 GM POWD.PACK PO SCH (08:33)
[2020-01-05] MEDS: ENOXAPARIN SODIUM 40 MG/0.4 ML SYRINGE SQ SCH ×2 (08:33→21:15)
[2020-01-05] MEDS: ACETYLCYSTEINE 600 MG CAPSULE PO SCH ×2 (08:33→21:14)
--- NOTE | 2020-01-05 18:30 | NUR ---
HAS BEEN STABLE THROUGHOUT THE DAY. NO DISTRESS. HAS BEEN WEINNED DOWN TO 50% VENTIMASK. TOLERATED OKAY. THERE IS A BEDSIDE COMODE. HE WILL TRY TO USE IT LATER. TOLERATED SITTING AT THE EDGE OF THE BED DURING THE DAY. HE WAS WATCHING A MOVIE THIS WHOLE TIME.
--- NOTE | 2020-01-05 23:43 | NUR ---
PATIENT WAS RECEIVED IN BED, AAOx3 WITH NO ACUTE DISTRESS NOTED. PATIENT ON VM 50% (15 LITERS) WITH SATURATIONS 96%. PATIENT VOICED ALL THE INSTRUCTIONS GIVEN TO HIM BY TEENA LOPEZ AND THAT HE CONTINUES TO DO THEM. HE STATES HE FEELS GOOD TODAY AND WAS ABLE TO USE BEDSIDE COMMODE AND HAVE A BM. I INSTRUCTED PATIENT TO CONT WITH PRONE POSITIONING TO AIDE HIS BREATHING. PT VOICED AGREEMENT. WILL CONT TO MONITOR CLOSELY. CALL HENDRIX IS WITH IN REACH. TELE WITH SINUS 50.
[2020-01-06] VITALS (9 sets, daily range): BP systolic 92–119; BP diastolic 52–72
--- NOTE | 2020-01-06 04:28 | NUR ---
S/P PATIENT FOUND ON FLOOR BY PEGGY COVARRUBIAS DURING VITAL SIGNS CHECK @ 0335 PATIENT WAS FOUND ON FLOOR, HE APPEARED DISORIENTED AND FELT CLAMMY. PT WAS IMMEDIATELY CARRIED TO BED BY PEGGY COVARRUBIAS AND PRIMARY NURSE RITU LOPEZ. PATIENT IMMEDIATELY SAID HE IS FINE AND SAID HE NOT RECALL WHY HE WAS ON THE FLOOR. HE STATES HE WAS SITTING AT SIDE OF BED USING URINAL. GLUCOSE CHECK AT 151 mg/dl, TELE MONITORING WITH NO SIGNIFICANT EVENT NOTED. RAPID RESPONSE WAS CALLED AT 033 AND CANCELLED AT 034, VITALS AT 034 BP 119/72 HR SINUS 50s. NEURO CHECKS DONE WITH NO COMPLICATIONS NOTED. PATIENT PLACED ON NRB MASK 100% WITH SATURATIONS 96%. NO VISIBLE INJURIES NOTED, DENIES PAIN. I NOTIFIED JD YI OF INCIDENT AND UPDATED ON STATUS. INSTRUCTIONS TO CONT TO MONITOR CLOSELY. AFTER A COUPLE OF MINUTES HE STATES HE WAS FLEXING HIS FEET AND SLIPPED TO FLOOR. PATIENT WAS INSTRUCTED TO CALL FOR ASSISTANCE AND NOT TO ATTEMPT TO GET UP OR SIT AT SIDE OF BED BY HIMSELF WITHOUT SUPERVISION. PT VOICED UNDERSTANDING. PT IN PRONE POSITION AT THIS TIME. Addendum: 01/06/20 at 0448 by JULISSA QUEEN RN RN LAST MONITOR CHECK VIA PATIENT SURVEILLANCE WAS AT 023.
[2020-01-06 05:49] LABS: BASOPHILS % (AUTO) 0.1 % (0.0-5.0); HEMATOCRIT 41.7 % (42-54); LYMPHOCYTES % (AUTO) 3.9 % (21.0-51.0); MEAN CORPUSCULAR HEMOGLOBIN 30.7 pg (27.0-33.0); MEAN CORPUSCULAR HGB CONC 33.1 g/dL (32.0-36.0); MEAN CORPUSCULAR VOLUME 92.7 fL (79-99); MONOCYTES % (AUTO) 2.6 % (3.0-13.0); PLATELET COUNT (AUTO) 297 K/uL (130-400); RED CELL DISTRIBUTION WIDTH 12.5 % (11.0-15.5); WHITE BLOOD COUNT (AUTO) 14.8 K/uL (4.8-10.8)
[2020-01-06 06:14] LABS: ALBUMIN 2.6 g/dL (3.5-5.0); BILIRUBIN,TOTAL 0.6 mg/dL (0.2-1.0); CREATININE 1.1 mg/dL (0.5-1.5); CRP QUANTITATIVE 11.1 mg/L (0.00-9.0); POTASSIUM 5.8 mmol/L (3.5-5.1); TOTAL PROTEIN, SERUM 6.8 g/dL (6.0-8.3)
[2020-01-06] MEDS: KETOROLAC TROMETHAMINE 30MG/ML IV SCH (07:57)
--- NOTE | 2020-01-06 08:30 | NUR ---
AM NOTE PT AWAKE, ALERT, AND ORIENTED. DENIES PAIN OR DISCOMFORT. O2 PER NON-REBREATHER, SOB WITH MINIMAL EXERTION. ASSISTANCE WITH ADLS, FALL PRECAUTIONS. CALL LIGHT WITHIN REACH.
[2020-01-06] MEDS: ASPIRIN 81 MG EC TAB PO SCH (09:42)
[2020-01-06] MEDS: DOCUSATE SODIUM 100 MG CAP PO SCH (09:42)
[2020-01-06] MEDS: ASCORBIC ACID 500 MG TAB PO SCH (09:42)
[2020-01-06] MEDS: ZINC SULFATE 220 CAPSULE PO SCH (09:42)
[2020-01-06] MEDS: PANTOPRAZOLE SODIUM 40 MG TABLET.DR PO SCH (09:42)
[2020-01-06] MEDS: DEXAMETHASONE SOD PHOSPHATE 4 MG/ML 1ML VIAL IVP SCH ×3 (09:42→21:42)
[2020-01-06] MEDS: POLYETHYLENE GLYCOL 3350 17 GM POWD.PACK PO SCH (09:43)
[2020-01-06] MEDS: ACETYLCYSTEINE 600 MG CAPSULE PO SCH ×2 (09:43→21:41)
[2020-01-06] MEDS: FLUTICASONE PROPIONATE 50MCG/SPRAY 16 GM BOTTLE EN SCH (09:44)
[2020-01-06] MEDS: ENOXAPARIN SODIUM 40 MG/0.4 ML SYRINGE SQ SCH ×2 (09:44→21:36)
[2020-01-06] MEDS ORDERED: PHARMACY COMMUNICATION MISC SCH (19:15)
[2020-01-06] MEDS ORDERED: SODIUM CHLORIDE 45 ML SPRY NS PRN (19:45)
[2020-01-07 01:57] VITALS: BP 114/73
[2020-01-07 04:03] LABS: BASOPHILS % (AUTO) 0.2 % (0.0-5.0); EOSINOPHILS % (AUTO) 0.1 % (0.0-8.0); HEMATOCRIT 40.9 % (42-54); LYMPHOCYTES % (AUTO) 6.3 % (21.0-51.0); MEAN CORPUSCULAR HEMOGLOBIN 30.1 pg (27.0-33.0); MEAN CORPUSCULAR VOLUME 91.1 fL (79-99); MONOCYTES % (AUTO) 4.5 % (3.0-13.0); NEUTROPHILS % (AUTO) 87.8 % (40.0-77.0); PLATELET COUNT (AUTO) 273 K/uL (130-400); RED BLOOD CELL COUNT(AUTO) 4.49 MIL/uL (4.50-6.20); RED CELL DISTRIBUTION WIDTH 12.5 % (11.0-15.5); WHITE BLOOD COUNT (AUTO) 16.1 K/uL (4.8-10.8)
[2020-01-07 04:20] LABS: ALBUMIN 2.6 g/dL (3.5-5.0); BILIRUBIN,TOTAL 0.5 mg/dL (0.2-1.0); CREATININE 1.1 mg/dL (0.5-1.5); CRP QUANTITATIVE 5.9 mg/L (0.00-9.0); TOTAL PROTEIN, SERUM 6.6 g/dL (6.0-8.3)
[2020-01-07 04:41] LABS: POTASSIUM 6.1 mmol/L (3.5-5.1)
[2020-01-07 05:06] VITALS: BP 126/69
[2020-01-07] MEDS: SODIUM POLYSTYRENE SULFONATE 15 GM/60 ML ML PO SCH ×2 (05:06→22:40)
[2020-01-07] MEDS ORDERED: CALCIUM GLUCONATE 1 GM/10 ML VIAL IV SCH (08:30)
[2020-01-07] MEDS ORDERED: CALCIUM GLUCONATE 1 GM in SODIUM CHLORIDE 0.9% 100 ML IV SCH (08:45)
--- NOTE | 2020-01-07 09:00 | NUR ---
AM NOTE PT AWAKE, ALERT, AND ORIENTED. STATES BREATHING BETTER, O2 PER NON-REBREATHER MASK. ASSISTANCE WITH ADLS, FALL PRECAUTION, CALL LIGHT WITHIN REACH,
[2020-01-07] MEDS: FLUTICASONE PROPIONATE 50MCG/SPRAY 16 GM BOTTLE EN SCH (09:10)
[2020-01-07] MEDS: DOCUSATE SODIUM 100 MG CAP PO SCH (09:11)
[2020-01-07] MEDS: ASPIRIN 81 MG EC TAB PO SCH (09:11)
[2020-01-07] MEDS: PANTOPRAZOLE SODIUM 40 MG TABLET.DR PO SCH (09:11)
[2020-01-07] MEDS: ZINC SULFATE 220 CAPSULE PO SCH (09:11)
[2020-01-07] MEDS: DEXAMETHASONE SOD PHOSPHATE 4 MG/ML 1ML VIAL IVP SCH ×2 (09:11→22:13)
[2020-01-07] MEDS: POLYETHYLENE GLYCOL 3350 17 GM POWD.PACK PO SCH (09:11)
[2020-01-07] MEDS: ASCORBIC ACID 500 MG TAB PO SCH (09:11)
[2020-01-07] MEDS: ACETYLCYSTEINE 600 MG CAPSULE PO SCH ×2 (09:12→22:13)
[2020-01-07] MEDS: ENOXAPARIN SODIUM 40 MG/0.4 ML SYRINGE SQ SCH ×2 (09:12→22:14)
[2020-01-07] MEDS ORDERED: FUROSEMIDE 10 MG/ML 4ML VIAL IV SCH (09:30)
[2020-01-07 10:07] VITALS: BP 115/67
[2020-01-07 12:27] VITALS: BP 108/60
[2020-01-07 13:28] LABS: APPEARANCE,URINE Clear (CLEAR); BILIRUBIN,URINE Negative (NEGATIVE); COLOR,URINE Yellow (YELLOW); GLUCOSE, URINE (UA) Negative (NEGATIVE); KETONES,URINE Negative (NEGATIVE); LEUKOCYTE ESTERASE ,URINE Negative (NEGATIVE); NITRATE,URINE Negative (NEGATIVE); OCCULT BLOOD,URINE Negative (NEGATIVE); PROTEIN,URINE Negative (NEGATIVE)
[2020-01-07 13:32] LABS: CREATININE,URINE RANDOM 69 mg/dL (30-135); POTASSIUM,URINE RANDOM 30 mmol/L (25-125)
--- NOTE | 2020-01-07 15:17 | NUR ---
Family notification Spoke to Anastasia and gave her an update regarding patient's condition. She asked if pt could be placed on humidified o2. Informed her that pt was on a nonrebreather mask and RT would be made aware. Spoke to Erik charger nurse and he would notify RT. Made Anastasia aware of response and was very content and very appreciative of call.
--- NOTE | 2020-01-07 15:39 | NUR ---
Family notification Addendum for 01/06/2020; Spoke to Anastasia to give her an update on patient's condition. All questions were answered and concerns addressed. Verbalized understanding and was very appreciative of call.
[2020-01-07 17:49] VITALS: BP 111/64
[2020-01-07 20:00] VITALS: BP 101/62
[2020-01-08 00:03] VITALS: BP 96/60
[2020-01-08] MEDS: ACETAMINOPHEN 325 MG TAB PO PRN (00:29)
[2020-01-08 04:03] VITALS: BP 106/72
[2020-01-08 06:15] LABS: HEMATOCRIT 42.8 % (42-54); MEAN CORPUSCULAR HEMOGLOBIN 30.2 pg (27.0-33.0); MEAN CORPUSCULAR HGB CONC 32.7 g/dL (32.0-36.0); MEAN CORPUSCULAR VOLUME 92.2 fL (79-99); PLATELET COUNT (AUTO) 259 K/uL (130-400); RED BLOOD CELL COUNT(AUTO) 4.64 MIL/uL (4.50-6.20); RED CELL DISTRIBUTION WIDTH 12.6 % (11.0-15.5); WHITE BLOOD COUNT (AUTO) 18.2 K/uL (4.8-10.8)
[2020-01-08 06:33] LABS: ALBUMIN 2.7 g/dL (3.5-5.0); BILIRUBIN,TOTAL 0.7 mg/dL (0.2-1.0); CREATININE 1.2 mg/dL (0.5-1.5); CRP QUANTITATIVE 11.6 mg/L (0.00-9.0); POTASSIUM 5.4 mmol/L (3.5-5.1)
[2020-01-08 06:38] LABS: BAND NEUTROPHILS % (MANUAL) 1 % (0-2); LYMPHOCYTES % (MANUAL) 9 % (22-44); MAN.DIFF COMMENT-IMPRESSION MANUAL DIFFERENTIAL; MONOCYTES % (MANUAL) 8 % (2-9); PLATELET MORPHOLOGY COMMENT ADEQUATE; SEGMENTED NEUTROPHILS % 82 % (40-70)
[2020-01-08 08:00] VITALS: BP 108/69
[2020-01-08] MEDS: FLUTICASONE PROPIONATE 50MCG/SPRAY 16 GM BOTTLE EN SCH (08:40)
[2020-01-08] MEDS: ASPIRIN 81 MG EC TAB PO SCH (08:42)
[2020-01-08] MEDS: PANTOPRAZOLE SODIUM 40 MG TABLET.DR PO SCH (08:42)
[2020-01-08] MEDS: DEXAMETHASONE SOD PHOSPHATE 4 MG/ML 1ML VIAL IVP SCH ×2 (08:42→22:15)
[2020-01-08] MEDS: ZINC SULFATE 220 CAPSULE PO SCH (08:42)
[2020-01-08] MEDS: ASCORBIC ACID 500 MG TAB PO SCH (08:42)
[2020-01-08] MEDS: POLYETHYLENE GLYCOL 3350 17 GM POWD.PACK PO SCH (08:42)
[2020-01-08] MEDS: ACETYLCYSTEINE 600 MG CAPSULE PO SCH ×2 (08:42→22:15)
[2020-01-08] MEDS: DOCUSATE SODIUM 100 MG CAP PO SCH (08:42)
[2020-01-08] MEDS: ENOXAPARIN SODIUM 40 MG/0.4 ML SYRINGE SQ SCH ×2 (08:44→22:15)
[2020-01-08] MEDS ORDERED: HYDROCHLOROTHIAZIDE 25 MG TABLET PO SCH (09:15)
[2020-01-08 12:00] VITALS: BP 93/53
[2020-01-08 16:00] VITALS: BP 104/66
[2020-01-08 20:00] VITALS: BP 100/61
[2020-01-09] VITALS (7 sets, daily range): BP systolic 95–117; BP diastolic 49–71
[2020-01-09] MEDS: SODIUM POLYSTYRENE SULFONATE 15 GM/60 ML ML PO SCH ×2 (05:00→05:31)
[2020-01-09 05:36] LABS: BASOPHILS % (AUTO) 0.2 % (0.0-5.0); EOSINOPHILS % (AUTO) 0.1 % (0.0-8.0); HEMATOCRIT 41.1 % (42-54); LYMPHOCYTES % (AUTO) 4.2 % (21.0-51.0); MEAN CORPUSCULAR HEMOGLOBIN 30.7 pg (27.0-33.0); MEAN CORPUSCULAR HGB CONC 33.1 g/dL (32.0-36.0); MEAN CORPUSCULAR VOLUME 92.8 fL (79-99); MONOCYTES % (AUTO) 2.3 % (3.0-13.0); NEUTROPHILS % (AUTO) 92.6 % (40.0-77.0); PLATELET COUNT (AUTO) 248 K/uL (130-400); RED BLOOD CELL COUNT(AUTO) 4.43 MIL/uL (4.50-6.20); RED CELL DISTRIBUTION WIDTH 12.3 % (11.0-15.5); WHITE BLOOD COUNT (AUTO) 18.9 K/uL (4.8-10.8)
[2020-01-09 05:47] LABS: LACTATE DEHYDROGENASE 335 U/L (81-234)
[2020-01-09] MEDS: FLUTICASONE PROPIONATE 50MCG/SPRAY 16 GM BOTTLE EN SCH (08:30)
[2020-01-09] MEDS: POLYETHYLENE GLYCOL 3350 17 GM POWD.PACK PO SCH (08:31)
[2020-01-09] MEDS: DOCUSATE SODIUM 100 MG CAP PO SCH (08:31)
[2020-01-09] MEDS: PANTOPRAZOLE SODIUM 40 MG TABLET.DR PO SCH (08:31)
[2020-01-09] MEDS: ASCORBIC ACID 500 MG TAB PO SCH (08:31)
[2020-01-09] MEDS: ZINC SULFATE 220 CAPSULE PO SCH (08:31)
[2020-01-09] MEDS: DEXAMETHASONE SOD PHOSPHATE 4 MG/ML 1ML VIAL IVP SCH ×2 (08:31→20:30)
[2020-01-09] MEDS: ACETYLCYSTEINE 600 MG CAPSULE PO SCH ×2 (08:31→20:30)
[2020-01-09] MEDS: ASPIRIN 81 MG EC TAB PO SCH (08:31)
[2020-01-09] MEDS: ENOXAPARIN SODIUM 40 MG/0.4 ML SYRINGE SQ SCH ×2 (08:32→20:30)
[2020-01-09 10:14] LABS: CREATININE 1.2 mg/dL (0.5-1.5); POTASSIUM 5.6 mmol/L (3.5-5.1)
[2020-01-09] MEDS ORDERED: LACTULOSE 20 GM/30 ML UDCUP PO SCH (14:05)
--- NOTE | 2020-01-09 20:30 | NUR ---
MEDS SHIFT ASSESSMENT DONE, PLEASE REFER TO CHART. DUE MEDS ADMINISTERED, TOLERATED WELL. KEPT RESTED AND COMFORTABLE. CALL LIGHT WITHIN REACH. Addendum: 01/09/20 at 2213 by NICOLLE CAMACHO RN RN Amended: Links added.
--- NOTE | 2020-01-10 02:00 | NUR ---
ROUNDS PT RESTING WELL, COMFORTABLY ON VENTI MASK. KEPT RESTED. WILL MONITOR PT. CALL LIGHT WITHIN REACH.
[2020-01-10 03:45] LABS: BASOPHILS % (AUTO) 0.1 % (0.0-5.0); EOSINOPHILS % (AUTO) 0.1 % (0.0-8.0); HEMATOCRIT 37.4 % (42-54); LYMPHOCYTES % (AUTO) 4.9 % (21.0-51.0); MEAN CORPUSCULAR HEMOGLOBIN 30.6 pg (27.0-33.0); MEAN CORPUSCULAR HGB CONC 33.4 g/dL (32.0-36.0); MEAN CORPUSCULAR VOLUME 91.4 fL (79-99); MONOCYTES % (AUTO) 2.7 % (3.0-13.0); NEUTROPHILS % (AUTO) 91.6 % (40.0-77.0); PLATELET COUNT (AUTO) 220 K/uL (130-400); RED BLOOD CELL COUNT(AUTO) 4.09 MIL/uL (4.50-6.20); RED CELL DISTRIBUTION WIDTH 12.2 % (11.0-15.5); WHITE BLOOD COUNT (AUTO) 15.5 K/uL (4.8-10.8)
[2020-01-10 04:00] VITALS: BP 106/60
[2020-01-10 04:09] LABS: CARBON DIOXIDE 31 mmol/L (21-32); CHLORIDE 97 mmol/L (101-111); GLOMERULAR FILTR. RATE CALC 87 mL/min (>60); GLUCOSE,RANDOM 129 mg/dL (70-105); LACTATE DEHYDROGENASE 236 U/L (81-234); POTASSIUM 4.8 mmol/L (3.5-5.1); SODIUM SERUM 133 mmol/L (136-145); UREA NITROGEN, BLOOD 25 mg/dL (7-18)
--- NOTE | 2020-01-10 05:59 | NUR ---
ROUNDS PT RESTING BUT STILL GETS SOB WITH EXERTION. MAINTAINED ON VENTI MASK 50%. PT GETS TO PRONE POSITION INTERMITTENTLY THROUGHOUT THE SHIFT. KEPT COMFORTABLE. FOR MORE CARE.
[2020-01-10 07:30] VITALS: BP 106/67
[2020-01-10] MEDS: POLYETHYLENE GLYCOL 3350 17 GM POWD.PACK PO SCH (09:55)
[2020-01-10] MEDS: DEXAMETHASONE SOD PHOSPHATE 4 MG/ML 1ML VIAL IVP SCH ×2 (09:55→20:20)
[2020-01-10] MEDS: ENOXAPARIN SODIUM 40 MG/0.4 ML SYRINGE SQ SCH ×2 (09:55→20:21)
[2020-01-10] MEDS: HYDROCHLOROTHIAZIDE 25 MG TABLET PO SCH (09:56)
[2020-01-10] MEDS: ZINC SULFATE 220 CAPSULE PO SCH (09:56)
[2020-01-10] MEDS: ASCORBIC ACID 500 MG TAB PO SCH (09:56)
[2020-01-10] MEDS: ASPIRIN 81 MG EC TAB PO SCH (09:56)
[2020-01-10] MEDS: DOCUSATE SODIUM 100 MG CAP PO SCH (09:56)
[2020-01-10] MEDS: ACETYLCYSTEINE 600 MG CAPSULE PO SCH ×2 (09:56→20:21)
[2020-01-10] MEDS: PANTOPRAZOLE SODIUM 40 MG TABLET.DR PO SCH (09:56)
[2020-01-10] MEDS: FLUTICASONE PROPIONATE 50MCG/SPRAY 16 GM BOTTLE EN SCH (09:57)
[2020-01-10 11:00] VITALS: BP 98/65
[2020-01-10 16:00] VITALS: BP 102/61
[2020-01-10 19:40] VITALS: BP 117/69
[2020-01-10 23:27] VITALS: BP 100/59
[2020-01-11 03:58] VITALS: BP 106/69
[2020-01-11 08:00] VITALS: BP 103/64
[2020-01-11] MEDS: ENOXAPARIN SODIUM 40 MG/0.4 ML SYRINGE SQ SCH ×2 (09:38→20:30)
[2020-01-11] MEDS: DOCUSATE SODIUM 100 MG CAP PO SCH (09:38)
[2020-01-11] MEDS: POLYETHYLENE GLYCOL 3350 17 GM POWD.PACK PO SCH (09:38)
[2020-01-11] MEDS: PANTOPRAZOLE SODIUM 40 MG TABLET.DR PO SCH (09:38)
[2020-01-11] MEDS: DEXAMETHASONE SOD PHOSPHATE 4 MG/ML 1ML VIAL IVP SCH ×2 (09:38→20:29)
[2020-01-11] MEDS: ASPIRIN 81 MG EC TAB PO SCH (09:39)
[2020-01-11] MEDS: HYDROCHLOROTHIAZIDE 25 MG TABLET PO SCH (09:39)
[2020-01-11] MEDS: ASCORBIC ACID 500 MG TAB PO SCH (09:39)
[2020-01-11] MEDS: ZINC SULFATE 220 CAPSULE PO SCH (09:39)
[2020-01-11] MEDS: ACETYLCYSTEINE 600 MG CAPSULE PO SCH ×2 (09:39→20:30)
[2020-01-11] MEDS: FLUTICASONE PROPIONATE 50MCG/SPRAY 16 GM BOTTLE EN SCH (09:39)
[2020-01-11 12:00] VITALS: BP 101/61
[2020-01-11 12:42] LABS: CARBON DIOXIDE 27 mmol/L (21-32); CHLORIDE 100 mmol/L (101-111); GLOMERULAR FILTR. RATE CALC 87 mL/min (>60); GLUCOSE,RANDOM 92 mg/dL (70-105); LACTATE DEHYDROGENASE 258 U/L (81-234); POTASSIUM 4.3 mmol/L (3.5-5.1); SODIUM SERUM 137 mmol/L (136-145); UREA NITROGEN, BLOOD 27 mg/dL (7-18)
[2020-01-11 16:00] VITALS: BP 104/72
[2020-01-11 19:45] VITALS: BP 102/67
[2020-01-11 23:15] VITALS: BP 106/66
[2020-01-12 03:40] VITALS: BP 104/68
[2020-01-12 07:38] LABS: BASOPHILS % (AUTO) 0.1 % (0.0-5.0); EOSINOPHILS % (AUTO) 0.1 % (0.0-8.0); HEMATOCRIT 40.4 % (42-54); MEAN CORPUSCULAR HEMOGLOBIN 30.5 pg (27.0-33.0); MEAN CORPUSCULAR HGB CONC 33.9 g/dL (32.0-36.0); MONOCYTES % (AUTO) 6.2 % (3.0-13.0); NEUTROPHILS % (AUTO) 84.1 % (40.0-77.0); PLATELET COUNT (AUTO) 193 K/uL (130-400); RED BLOOD CELL COUNT(AUTO) 4.49 MIL/uL (4.50-6.20); RED CELL DISTRIBUTION WIDTH 12.1 % (11.0-15.5); WHITE BLOOD COUNT (AUTO) 11.5 K/uL (4.8-10.8)
[2020-01-12 08:00] VITALS: BP 101/65
[2020-01-12 08:10] LABS: CARBON DIOXIDE 34 mmol/L (21-32); CHLORIDE 97 mmol/L (101-111); CREATININE 1.1 mg/dL (0.5-1.5); GLOMERULAR FILTR. RATE CALC 77 mL/min (>60); GLUCOSE,RANDOM 93 mg/dL (70-105); LACTATE DEHYDROGENASE 187 U/L (81-234); POTASSIUM 4.9 mmol/L (3.5-5.1); SODIUM SERUM 134 mmol/L (136-145); UREA NITROGEN, BLOOD 25 mg/dL (7-18)
[2020-01-12] MEDS: DEXAMETHASONE SOD PHOSPHATE 4 MG/ML 1ML VIAL IVP SCH ×2 (09:06→21:09)
[2020-01-12] MEDS: HYDROCHLOROTHIAZIDE 25 MG TABLET PO SCH (09:07)
[2020-01-12] MEDS: ENOXAPARIN SODIUM 40 MG/0.4 ML SYRINGE SQ SCH ×2 (09:07→21:09)
[2020-01-12] MEDS: DOCUSATE SODIUM 100 MG CAP PO SCH (09:07)
[2020-01-12] MEDS: ZINC SULFATE 220 CAPSULE PO SCH (09:07)
[2020-01-12] MEDS: ACETYLCYSTEINE 600 MG CAPSULE PO SCH ×2 (09:07→21:09)
[2020-01-12] MEDS: POLYETHYLENE GLYCOL 3350 17 GM POWD.PACK PO SCH (09:07)
[2020-01-12] MEDS: ASPIRIN 81 MG EC TAB PO SCH (09:07)
[2020-01-12] MEDS: FLUTICASONE PROPIONATE 50MCG/SPRAY 16 GM BOTTLE EN SCH (09:08)
[2020-01-12] MEDS: PANTOPRAZOLE SODIUM 40 MG TABLET.DR PO SCH (09:08)
[2020-01-12] MEDS: ASCORBIC ACID 500 MG TAB PO SCH (09:08)
[2020-01-12 12:00] VITALS: BP 110/68
[2020-01-12 16:00] VITALS: BP 115/71
[2020-01-12 19:50] VITALS: BP 114/70
[2020-01-12 23:37] VITALS: BP 97/62
[2020-01-13 03:45] VITALS: BP 103/58
[2020-01-13] MEDS: DEXAMETHASONE SOD PHOSPHATE 4 MG/ML 1ML VIAL IVP SCH (08:11)
[2020-01-13] MEDS: ZINC SULFATE 220 CAPSULE PO SCH (08:11)
[2020-01-13] MEDS: POLYETHYLENE GLYCOL 3350 17 GM POWD.PACK PO SCH (08:11)
[2020-01-13] MEDS: PANTOPRAZOLE SODIUM 40 MG TABLET.DR PO SCH (08:11)
[2020-01-13] MEDS: DOCUSATE SODIUM 100 MG CAP PO SCH (08:11)
[2020-01-13] MEDS: ACETYLCYSTEINE 600 MG CAPSULE PO SCH ×2 (08:11→22:10)
[2020-01-13] MEDS: ASPIRIN 81 MG EC TAB PO SCH (08:11)
[2020-01-13] MEDS: HYDROCHLOROTHIAZIDE 25 MG TABLET PO SCH (08:11)
[2020-01-13] MEDS: ASCORBIC ACID 500 MG TAB PO SCH (08:11)
[2020-01-13] MEDS: FLUTICASONE PROPIONATE 50MCG/SPRAY 16 GM BOTTLE EN SCH (08:12)
[2020-01-13] MEDS: ENOXAPARIN SODIUM 40 MG/0.4 ML SYRINGE SQ SCH ×2 (08:12→22:11)
[2020-01-13 08:41] LABS: ALANINE AMINOTRANSFERASE 59 U/L (12-78); ALBUMIN 2.7 g/dL (3.5-5.0); ASPARTATE AMINOTRANSFERASE 20 U/L (10-37); BILIRUBIN,TOTAL 0.4 mg/dL (0.2-1.0); CARBON DIOXIDE 32 mmol/L (21-32); CHLORIDE 99 mmol/L (101-111); GLOMERULAR FILTR. RATE CALC 86 mL/min (>60); GLUCOSE,RANDOM 96 mg/dL (70-105); LACTATE DEHYDROGENASE 202 U/L (81-234); POTASSIUM 4.7 mmol/L (3.5-5.1); SODIUM SERUM 136 mmol/L (136-145); TOTAL PROTEIN, SERUM 6.6 g/dL (6.0-8.3); UREA NITROGEN, BLOOD 20 mg/dL (7-18)
[2020-01-13 08:47] LABS: CRP QUANTITATIVE < 2.00 mg/L (0.00-9.0)
[2020-01-13 09:35] VITALS: BP 109/64
[2020-01-13 11:41] VITALS: BP 109/62
[2020-01-13 17:13] VITALS: BP 120/67
--- NOTE | 2020-01-13 18:51 | NUR ---
Pt alert, tried to wean pt from 40% to 35% but pt oxygen went to 84-86 on VM, pt is back on 40% VM sat at 92-94%, vitals WNL, pt resting in bed, will continue to monitor pt
[2020-01-13 21:59] VITALS: BP 108/71
[2020-01-13] MEDS ORDERED: DEXAMETHASONE SOD PHOSPHATE 10MG/ML 1ML VIAL IVP SCH (22:02)
[2020-01-14 06:09] VITALS: BP 112/58
[2020-01-14 06:34] LABS: BASOPHILS % (AUTO) 0.1 % (0.0-5.0); EOSINOPHILS % (AUTO) 0.1 % (0.0-8.0); LYMPHOCYTES % (AUTO) 5.1 % (21.0-51.0); MEAN CORPUSCULAR HEMOGLOBIN 30.7 pg (27.0-33.0); MEAN CORPUSCULAR HGB CONC 33.4 g/dL (32.0-36.0); MEAN CORPUSCULAR VOLUME 91.8 fL (79-99); MONOCYTES % (AUTO) 2.9 % (3.0-13.0); NEUTROPHILS % (AUTO) 91.3 % (40.0-77.0); PLATELET COUNT (AUTO) 172 K/uL (130-400); RED BLOOD CELL COUNT(AUTO) 4.14 MIL/uL (4.50-6.20); RED CELL DISTRIBUTION WIDTH 12.6 % (11.0-15.5); WHITE BLOOD COUNT (AUTO) 15.3 K/uL (4.8-10.8)
[2020-01-14 07:03] LABS: ALANINE AMINOTRANSFERASE 57 U/L (12-78); ASPARTATE AMINOTRANSFERASE 20 U/L (10-37); BILIRUBIN,TOTAL 0.4 mg/dL (0.2-1.0); CARBON DIOXIDE 32 mmol/L (21-32); CHLORIDE 99 mmol/L (101-111); CREATININE 1.1 mg/dL (0.5-1.5); GLOMERULAR FILTR. RATE CALC 77 mL/min (>60); GLUCOSE,RANDOM 131 mg/dL (70-105); LACTATE DEHYDROGENASE 246 U/L (81-234); POTASSIUM 3.9 mmol/L (3.5-5.1); SODIUM SERUM 135 mmol/L (136-145); TOTAL PROTEIN, SERUM 6.8 g/dL (6.0-8.3); UREA NITROGEN, BLOOD 20 mg/dL (7-18)
[2020-01-14 07:27] LABS: CRP QUANTITATIVE < 2.00 mg/L (0.00-9.0)
[2020-01-14 08:07] VITALS: BP 107/69
[2020-01-14] MEDS: POLYETHYLENE GLYCOL 3350 17 GM POWD.PACK PO SCH (08:27)
[2020-01-14] MEDS: ASCORBIC ACID 500 MG TAB PO SCH (08:27)
[2020-01-14] MEDS: ACETYLCYSTEINE 600 MG CAPSULE PO SCH ×2 (08:27→20:30)
[2020-01-14] MEDS: HYDROCHLOROTHIAZIDE 25 MG TABLET PO SCH (08:28)
[2020-01-14] MEDS: ENOXAPARIN SODIUM 40 MG/0.4 ML SYRINGE SQ SCH ×2 (08:28→20:30)
[2020-01-14] MEDS: ZINC SULFATE 220 CAPSULE PO SCH (08:28)
[2020-01-14] MEDS: DOCUSATE SODIUM 100 MG CAP PO SCH (08:28)
[2020-01-14] MEDS: ASPIRIN 81 MG EC TAB PO SCH (08:28)
[2020-01-14] MEDS: PANTOPRAZOLE SODIUM 40 MG TABLET.DR PO SCH (08:28)
[2020-01-14] MEDS: FLUTICASONE PROPIONATE 50MCG/SPRAY 16 GM BOTTLE EN SCH (08:30)
[2020-01-14 11:29] VITALS: BP 100/57
[2020-01-14] MEDS: DEXAMETHASONE 4 MG TAB PO SCH ×2 (11:29→20:30)
[2020-01-14 15:55] VITALS: BP 101/69
[2020-01-14 20:00] VITALS: BP 111/69
--- NOTE | 2020-01-14 20:30 | NUR ---
MEDS SHIFT ASSESSMENT DONE, PLEASE REFER TO CHART. DUE MEDS ADMINISTERED, TOLERATED WELL. CALL LIGHT WITHIN REACH. WILL MONITOR PT. Addendum: 01/14/20 at 2239 by NICOLLE CAMACHO RN RN Amended: Links added.
[2020-01-14] MEDS: GUAIFENESIN-DM 200/20 MG 10 ML PO PRN (21:10)
[2020-01-15 00:15] VITALS: BP 111/60
--- NOTE | 2020-01-15 02:00 | NUR ---
ROUNDS PT RESTING WELL, FAIRLY ASLEEP. NO DISTRESS NOTED. KEPT RESTED AND COMFORTABLE. CALL LIGHT WITHIN REACH. WILL MONITOR PT.
[2020-01-15 04:22] VITALS: BP 105/61
--- NOTE | 2020-01-15 06:20 | NUR ---
ROUNDS PT RESTING WELL, NO DISTRESS NOTED. NO CONCERNS VERBALIZED. KEPT COMFORTABLE. FOR MORE CARE.
[2020-01-15 08:00] VITALS: BP 103/54
[2020-01-15] MEDS: HYDROCHLOROTHIAZIDE 25 MG TABLET PO SCH (09:00)
[2020-01-15] MEDS: PANTOPRAZOLE SODIUM 40 MG TABLET.DR PO SCH (09:44)
[2020-01-15] MEDS: ZINC SULFATE 220 CAPSULE PO SCH (09:45)
[2020-01-15] MEDS: DEXAMETHASONE 4 MG TAB PO SCH ×2 (09:45→20:51)
[2020-01-15] MEDS: ASCORBIC ACID 500 MG TAB PO SCH (09:45)
[2020-01-15] MEDS: DOCUSATE SODIUM 100 MG CAP PO SCH (09:45)
[2020-01-15] MEDS: ACETYLCYSTEINE 600 MG CAPSULE PO SCH ×2 (09:45→20:50)
[2020-01-15] MEDS: ASPIRIN 81 MG EC TAB PO SCH (09:46)
[2020-01-15] MEDS: POLYETHYLENE GLYCOL 3350 17 GM POWD.PACK PO SCH (09:46)
[2020-01-15] MEDS: ENOXAPARIN SODIUM 40 MG/0.4 ML SYRINGE SQ SCH ×2 (09:46→20:52)
[2020-01-15] MEDS: FLUTICASONE PROPIONATE 50MCG/SPRAY 16 GM BOTTLE EN SCH (09:47)
[2020-01-15 12:00] VITALS: BP 99/60
[2020-01-15 16:00] VITALS: BP 107/52
--- NOTE | 2020-01-15 16:28 | NUR ---
CM NOTE/PENDING POLLY [facility] CALL MADE TO PATIENTS ROOM, NO ANSWER. CALL MADE TO NEXT OF KIN, GIRLFRIEND, NEO KEY REGARDING DCP PLANNING. MADE AWARE OF REFERRAL FOR [facility]. PER GIRLFRIEND, SHE IS CONCERNED THAT HE WILL BE EXPOSED TO COVID AT FACILITY. NEO REMINDED THAT HE IS POSITIVE FOR COVID AND THAT HE IS IN A COVID UNIT ALREADY. EDUCATED GIRLFRIEND ON ISOLATION PRECAUTIONS ALL FACILITIES ARE REQUIRED TO HAVE D/T POSITIVE COVID RESULTS. INFORMED GIRLFRIEND THAT REFERRAL IS FOR CONTINUATION OF OXYGEN MANAGEMENT, CURRENTLY ON VENTI MASK SATING 95%. PER GIRLFRIEND, WANTS TO TALK TO PATIENT FIRST BEFORE POLLY COMPLETED FOR [facility]. CM TO FOLLOW UP TOMORROW FOR POLLY AFTER GIRLFRIEND AND PATIENT TALK ABOUT REFERRAL.
--- NOTE | 2020-01-15 17:45 | NUR ---
SHIFT SUMMARY: PT HAD SATS 98% ON NELL-MASK---TOWARDS END OF DAY I DECREASED TO 5L NC AND PT CONT TO SAT AT 99% AND KRISTI. WELL; WILL CONT. TO DECREASE OXYGEN KRISTI. PT SAT UP FREQUENTLY ON SIDE OF BED AND IN CHAIR NEXT TO BED AND OXYGEN;
[2020-01-15 19:00] VITALS: BP 119/64
[2020-01-16] VITALS (7 sets, daily range): BP systolic 104–131; BP diastolic 64–85
[2020-01-16 04:34] LABS: EOSINOPHILS % (AUTO) 0.1 % (0.0-8.0); HEMATOCRIT 34.3 % (42-54); LYMPHOCYTES % (AUTO) 6.2 % (21.0-51.0); MEAN CORPUSCULAR HEMOGLOBIN 30.6 pg (27.0-33.0); MEAN CORPUSCULAR HGB CONC 33.2 g/dL (32.0-36.0); MEAN CORPUSCULAR VOLUME 92.2 fL (79-99); MONOCYTES % (AUTO) 3.3 % (3.0-13.0); PLATELET COUNT (AUTO) 156 K/uL (130-400); RED BLOOD CELL COUNT(AUTO) 3.72 MIL/uL (4.50-6.20); RED CELL DISTRIBUTION WIDTH 12.8 % (11.0-15.5); WHITE BLOOD COUNT (AUTO) 11.3 K/uL (4.8-10.8)
[2020-01-16 04:59] LABS: ALANINE AMINOTRANSFERASE 56 U/L (12-78); ALBUMIN 2.7 g/dL (3.5-5.0); ASPARTATE AMINOTRANSFERASE 20 U/L (10-37); BILIRUBIN,TOTAL 0.3 mg/dL (0.2-1.0); CARBON DIOXIDE 30 mmol/L (21-32); CHLORIDE 101 mmol/L (101-111); CREATININE 0.9 mg/dL (0.5-1.5); GLOMERULAR FILTR. RATE CALC 97 mL/min (>60); GLUCOSE,RANDOM 118 mg/dL (70-105); POTASSIUM 4.4 mmol/L (3.5-5.1); SODIUM SERUM 136 mmol/L (136-145); UREA NITROGEN, BLOOD 24 mg/dL (7-18)
[2020-01-16 07:58] LABS: CRP QUANTITATIVE < 2.00 mg/L (0.00-9.0)
[2020-01-16] MEDS: ACETYLCYSTEINE 600 MG CAPSULE PO SCH ×2 (08:20→21:10)
[2020-01-16] MEDS: PANTOPRAZOLE SODIUM 40 MG TABLET.DR PO SCH (08:20)
[2020-01-16] MEDS: ENOXAPARIN SODIUM 40 MG/0.4 ML SYRINGE SQ SCH ×2 (08:20→21:11)
[2020-01-16] MEDS: DOCUSATE SODIUM 100 MG CAP PO SCH (08:20)
[2020-01-16] MEDS: ZINC SULFATE 220 CAPSULE PO SCH (08:21)
[2020-01-16] MEDS: ASCORBIC ACID 500 MG TAB PO SCH (08:21)
[2020-01-16] MEDS: HYDROCHLOROTHIAZIDE 25 MG TABLET PO SCH (08:21)
[2020-01-16] MEDS: POLYETHYLENE GLYCOL 3350 17 GM POWD.PACK PO SCH (08:22)
[2020-01-16] MEDS: ASPIRIN 81 MG EC TAB PO SCH (08:22)
[2020-01-16] MEDS: DEXAMETHASONE 4 MG TAB PO SCH ×2 (08:22→21:10)
[2020-01-16] MEDS: FLUTICASONE PROPIONATE 50MCG/SPRAY 16 GM BOTTLE EN SCH (09:49)
--- NOTE | 2020-01-16 13:56 | NUR ---
RD FOLLOW UP Pt with regular diet order, no report of GI distress. PO % unavailable. Attempt to call Pt - no answer. Attempt to call RN, call transferred x2, attempted Spectra, RN unavailable. Pt with Vitamin C, Zinc, Miralax in place. LBM 01/14/20. Alb 2.7, improving lab values. Recommend continue current diet order. RD to continue to monitor. Please notify as additional nutrition concerns arise.
--- NOTE | 2020-01-16 16:57 | NUR ---
CM Note: spoke to pt and gf CM spoke to pt and gf, updated w/POC. At this time pt and gf declined placement, pt prefers to go back home. Pt currently w/2LPM NC O2, pending wean off O2. Pending home O2 eval once pt stable to dc home. CM to cont to follow up.
[2020-01-17 03:49] VITALS: BP 110/73
[2020-01-17 08:00] VITALS: BP 107/71
[2020-01-17] MEDS: DEXAMETHASONE 4 MG TAB PO SCH (08:11)
[2020-01-17] MEDS: ASPIRIN 81 MG EC TAB PO SCH (08:12)
[2020-01-17] MEDS: DOCUSATE SODIUM 100 MG CAP PO SCH (08:12)
[2020-01-17] MEDS: ACETYLCYSTEINE 600 MG CAPSULE PO SCH (08:12)
[2020-01-17] MEDS: ASCORBIC ACID 500 MG TAB PO SCH (08:12)
[2020-01-17] MEDS: ENOXAPARIN SODIUM 40 MG/0.4 ML SYRINGE SQ SCH (08:12)
[2020-01-17] MEDS: PANTOPRAZOLE SODIUM 40 MG TABLET.DR PO SCH (08:16)
[2020-01-17] MEDS: ZINC SULFATE 220 CAPSULE PO SCH (08:16)
[2020-01-17] MEDS: POLYETHYLENE GLYCOL 3350 17 GM POWD.PACK PO SCH (08:16)
[2020-01-17] MEDS: HYDROCHLOROTHIAZIDE 25 MG TABLET PO SCH (08:17)
[2020-01-17] MEDS: FLUTICASONE PROPIONATE 50MCG/SPRAY 16 GM BOTTLE EN SCH (08:19)
[2020-01-17 11:00] VITALS: BP 104/63
[2020-01-17 16:00] VITALS: BP 105/67
[2020-01-17] MEDS ORDERED: DEXA6TAB PO (16:00)
--- NOTE | 2020-01-17 18:00 | NUR ---
DISCHARGED HOME WITH TRANSFER TANK AND HOME CONCENTRATOR, TANK ON LOAN OVERNIGHT TO [place], CONCENTRATOR UNTIL INSURANCE APPROVES OXYGEN- PATIENT AND GIRLFRIEND AWARE. RN/CHARGE TO GET SIGNATURES ON EQUIPMENT FORMS Addendum: 01/17/20 at 2127 by DANUTA BROOKS RN CM Amended: Links added.
== END 2020-01-17 19:00 | disposition home or self-care (01) | DRG 177 ==
LOC: EDH 15:27 → EDHIP 22:32 → 4AH 12-26 04:30 → 2CV 12-31 12:42 → 4DH 01-03 17:47
PROVIDERS: ADMIT Internal Medicine; ATTEND Internal Medicine
PROC: 30233K1 Transfusion of Nonautologous Frozen Plasma into Peripheral Vein, Percutaneous Approach (ICD-10-PCS; principal; 2020-01-16)
DX: U07.1 COVID-19 (principal); J96.01 Acute respiratory failure with hypoxia; J12.89 Other viral pneumonia; N17.9 Acute kidney failure, unspecified; T79.7XXA Traumatic subcutaneous emphysema, initial encounter; M10.9 Gout, unspecified; E87.5 Hyperkalemia; F41.9 Anxiety disorder, unspecified; R20.2 Paresthesia of skin; I10 Essential (primary) hypertension; R53.81 Other malaise; E87.8 Other disorders of electrolyte and fluid balance, not elsewhere classified; Y93.89 Activity, other specified; Y92.89 Other specified places as the place of occurrence of the external cause; Y99.8 Other external cause status
CPT/HCPCS: 0099U; 36415; 36430; 71045; 71046; 71260; 80048; 80053; 80305; 81003; 82533; 82550; 82570; 82728; 82948; 83615; 84132; 84133; 84145; 84484; 85025; 85027; 85378; 86140; 86850; 86900; 86901; 86927; 87804; 93005; 93306; 93356; 94760; 96360; 96361; G0378; J0610; J1100; J1650; J1885; J1940; J2060; J2405; J2704; J2920; J7030; J7040; J7050; J8540; P9017; Q9967; U0003

== ENCOUNTER 2020-02-05 12:49 | Emergency (ER) | payer BC ==
[~2020-02-05 12:49] MED LIST: ALBU8.5H8 IH; DEXA6TAB PO
[2020-02-05] MEDS ORDERED: ZOSYN 3.375GM+NS 50ML 50 ML IV ONE (13:11)
[2020-02-05 13:32] LABS: ABG BASE EXCESS -0.8 mmol/L (-2.0-3.0); ABG HCO3 22.4 mmol/L (21.0-28.0); ABG OXYGEN SATURATION 94.1 % (95.0-99.0); ABG PCO2 33 mmHg (35-48)
[2020-02-05 13:59] LABS: BASOPHILS % (AUTO) 0.3 % (0.0-5.0); EOSINOPHILS % (AUTO) 0.5 % (0.0-8.0); HEMATOCRIT 33.1 % (42-54); LYMPHOCYTES % (AUTO) 10.4 % (21.0-51.0); MEAN CORPUSCULAR HEMOGLOBIN 31.1 pg (27.0-33.0); MEAN CORPUSCULAR HGB CONC 32.6 g/dL (32.0-36.0); MEAN CORPUSCULAR VOLUME 95.4 fL (79-99); MONOCYTES % (AUTO) 6.7 % (3.0-13.0); NEUTROPHILS % (AUTO) 81.2 % (40.0-77.0); PLATELET COUNT (AUTO) 250 K/uL (130-400); RED BLOOD CELL COUNT(AUTO) 3.47 MIL/uL (4.50-6.20); RED CELL DISTRIBUTION WIDTH 16.2 % (11.0-15.5); WHITE BLOOD COUNT (AUTO) 11.6 K/uL (4.8-10.8)
[2020-02-05 14:11] LABS: CARBON DIOXIDE 27 mmol/L (21-32); CHLORIDE 102 mmol/L (101-111); CREATININE 0.8 mg/dL (0.5-1.5); GLOMERULAR FILTR. RATE CALC 112 mL/min (>60); GLUCOSE,RANDOM 95 mg/dL (70-105); POTASSIUM 4.2 mmol/L (3.5-5.1); SODIUM SERUM 139 mmol/L (136-145); UREA NITROGEN, BLOOD 9 mg/dL (7-18)
[2020-02-05 14:28] LABS: ALANINE AMINOTRANSFERASE 45 U/L (12-78); ALBUMIN 3.1 g/dL (3.5-5.0); ASPARTATE AMINOTRANSFERASE 30 U/L (10-37); BILIRUBIN,TOTAL 0.5 mg/dL (0.2-1.0); CREATINE KINASE, TOTAL 49 U/L (21-232); MYOGLOBIN 27 ng/mL (10-92); TROPONIN I < 0.04 ng/mL (0.00-0.06)
[2020-02-05 14:30] LABS: INR 1.04 (0.85-1.15); PARTIAL THROMBOPLASTIN TIME 39.2 SEC (26.3-35.5); PROTHROMBIN TIME 11.2 SEC (9.6-11.6)
[2020-02-05 14:37] LABS: APPEARANCE,URINE Clear (CLEAR); BILIRUBIN,URINE Negative (NEGATIVE); COLOR,URINE Yellow (YELLOW); GLUCOSE, URINE (UA) Negative (NEGATIVE); KETONES,URINE Negative (NEGATIVE); LEUKOCYTE ESTERASE ,URINE Negative (NEGATIVE); NITRATE,URINE Negative (NEGATIVE); OCCULT BLOOD,URINE Negative (NEGATIVE); PH,URINE 5.5 (5.0-8.0); PROTEIN,URINE Negative (NEGATIVE)
[2020-02-05] MEDS ORDERED: SODIUM CHLORIDE 0.9% 500ML 500 ML IV ONE ×2 (14:38→15:12)
== END 2020-02-05 19:37 | disposition home or self-care (01) ==
LOC: EDH 12:49
DX: U07.1 COVID-19 (principal)
CPT/HCPCS: 36415; 36600; 71045; 80053; 81003; 82550; 82728; 82803; 83605 ×2; 83874; 84145; 84484; 85025; 85378; 85610; 85730; 87040; 87088; 87426; 93005; 96361; 96365; 99285; J2543; J7040 ×2; U0003

== ENCOUNTER → 2020-02-14 | Outpatient (CLI) | payer BC | END | disposition home or self-care (01) | LOC: RAH 13:54 | PROVIDERS: ATTEND Internal Medicine Cardiovascular Disease | DX: R06.02 Shortness of breath (principal); R06.00 Dyspnea, unspecified; M47.814 Spondylosis without myelopathy or radiculopathy, thoracic region; U07.1 COVID-19; Z79.01 Long term (current) use of anticoagulants | CPT/HCPCS: 71046; 78582; A9540; A9558 ==

== ENCOUNTER 2020-12-07 13:46 | Emergency (ER) | payer BC ==
[~2020-12-07] VITALS: Ht 170.2 cm; Wt 83.0 kg
[2020-12-07 13:51] VITALS: BP 149/93
[2020-12-07 16:43] LABS: BASOPHILS % (AUTO) 0.6 % (0.0-5.0); EOSINOPHILS % (AUTO) 1.9 % (0.0-8.0); HEMATOCRIT 44.3 % (42-54); LYMPHOCYTES % (AUTO) 26.6 % (21.0-51.0); MEAN CORPUSCULAR HEMOGLOBIN 30.5 pg (27.0-33.0); MEAN CORPUSCULAR HGB CONC 32.7 g/dL (32.0-36.0); MEAN CORPUSCULAR VOLUME 93.1 fL (79-99); MONOCYTES % (AUTO) 6.8 % (3.0-13.0); NEUTROPHILS % (AUTO) 63.8 % (40.0-77.0); PLATELET COUNT (AUTO) 244 K/uL (130-400); RED BLOOD CELL COUNT(AUTO) 4.76 MIL/uL (4.50-6.20); RED CELL DISTRIBUTION WIDTH 12.7 % (11.0-15.5); WHITE BLOOD COUNT (AUTO) 7.8 K/uL (4.8-10.8)
[2020-12-07 16:55] LABS: CREATININE 1.1 mg/dL (0.5-1.5); POTASSIUM 5.2 mmol/L (3.5-5.1)
[2020-12-07 17:00] LABS: ALBUMIN 4.3 g/dL (3.5-5.0); BILIRUBIN,TOTAL 0.5 mg/dL (0.2-1.0); TOTAL PROTEIN, SERUM 8.5 g/dL (6.0-8.3)
== END 2020-12-07 17:16 | disposition home or self-care (01) ==
LOC: EDH 13:46
DX: J06.9 Acute upper respiratory infection, unspecified (principal); R51.9 Headache, unspecified; R42 Dizziness and giddiness; Z86.16 Personal history of COVID-19; Z79.899 Other long term (current) drug therapy
CPT/HCPCS: 36415; 80053; 85025

== ENCOUNTER 2022-07-06 19:06 | Emergency (ER) | payer BC ==
[~2022-07-06] VITALS: Ht 170.2 cm; Wt 88.0 kg
[2022-07-06] MEDS ORDERED: KETOROLAC 30MG VIAL (30MG/ML) IVP ONE (22:00)
[2022-07-06 22:41] LABS: BASOPHILS % (AUTO) 0.6 % (0.0-5.0); EOSINOPHILS % (AUTO) 1.9 % (0.0-8.0); HEMATOCRIT 41.8 % (42-54); LYMPHOCYTES % (AUTO) 25.7 % (21.0-51.0); MEAN CORPUSCULAR HEMOGLOBIN 30.8 pg (27.0-33.0); MEAN CORPUSCULAR HGB CONC 33.3 g/dL (32.0-36.0); MEAN CORPUSCULAR VOLUME 92.5 fL (79-99); MONOCYTES % (AUTO) 9.7 % (3.0-13.0); NEUTROPHILS % (AUTO) 61.8 % (40.0-77.0); PLATELET COUNT (AUTO) 217 K/uL (130-400); RED BLOOD CELL COUNT(AUTO) 4.52 MIL/uL (4.50-6.20); RED CELL DISTRIBUTION WIDTH 13.2 % (11.0-15.5); WHITE BLOOD COUNT (AUTO) 7.9 K/uL (4.8-10.8)
[2022-07-06 22:50] LABS: CREATININE 1.1 mg/dL (0.5-1.5); POTASSIUM 3.9 mmol/L (3.5-5.1)
[2022-07-06 23:40] VITALS: BP 149/88
[2022-07-06] MEDS ORDERED: IBUP-2071 PO (23:44)
[2022-07-06] MEDS ORDERED: KETOROLAC 30MG VIAL (30MG/ML) ONE (23:47)
[2022-07-07] MEDS ORDERED: KETOROLAC 60 MG VIAL (30MG/ML) IM ONE
== END 2022-07-07 | disposition home or self-care (01) ==
LOC: EDH 19:06
DX: M54.12 Radiculopathy, cervical region (principal); Z79.899 Other long term (current) drug therapy; Z79.1 Long term (current) use of non-steroidal anti-inflammatories (NSAID); Z79.52 Long term (current) use of systemic steroids
CPT/HCPCS: 99284; 96374; 71045; 84484; 80053; 85025; 36415; 93005; J1885

== ENCOUNTER 2024-12-23 15:13 | Emergency (ER) | payer BC ==
[~2024-12-23] VITALS: Ht 170.2 cm; Wt 86.2 kg
[~2024-12-23 15:13] MED LIST changes: -ALBU8.5H8 IH; +ASPI-1005 PO; +ATOR40TA69 PO; -DEXA6TAB PO; +ENAL-87 PO; +METO25TA6 PO; +OSEL75 PO; +PRAS10TA20 PO
--- NOTE | 2024-12-23 15:22 | EKG ---
[facility] Test Date: 2024-12-23 Test Time: 15:18:09 Pat Name: LOREN GUERRERO Department: ED Room: Gender: M River Guide: [id number] : 1975 Requested By: CHRISTINA LUGO Order Number: [id number] Reading MD: Arnav Wahl Measurements Intervals [place] Rate: 61 P: 46 MS: 139 QRS: -12 QRSD: 87 T: -1 QT: 413 QTc: 416 Interpretive Statements Sinus rhythm Probable left atrial enlargement Nonspecific STT abnormality Compared to ECG 06/25/2024 08:21:57 Myocardial infarct finding no longer present Electronically Signed On 12-23-2024 21:47:35 CDT by Arnav Wahl Please click the below link to view image of tracing.
[2024-12-23 15:36] LABS: BASOPHILS # (AUTO) 0.04 K/uL (0.00-0.20); BASOPHILS % (AUTO) 0.5 % (0.0-5.0); EOSINOPHILS # (AUTO) 0.36 K/uL (0.00-0.70); EOSINOPHILS % (AUTO) 4.1 % (0.0-8.0); HEMATOCRIT 40.5 % (42-54); IMMATURE GRANULOCYTE ABSOLUTE 0.01 K/uL (0-1); LYMPHOCYTES # (AUTO) 2.2 K/uL (1.0-4.8); LYMPHOCYTES % (AUTO) 24.9 % (21.0-51.0); MEAN CORPUSCULAR HGB CONC 33.3 g/dL (32.0-36.0); MEAN CORPUSCULAR VOLUME 93.1 fL (79-99); MONOCYTES # (AUTO) 0.8 K/uL (0.1-1.0); MONOCYTES % (AUTO) 8.7 % (3.0-13.0); NEUTROPHILS # (AUTO) 5.4 K/uL (1.8-7.7); NEUTROPHILS % (AUTO) 61.7 % (40.0-77.0); PLATELET COUNT (AUTO) 224 K/uL (130-400); RED BLOOD CELL COUNT(AUTO) 4.35 MIL/uL (4.50-6.20); RED CELL DISTRIBUTION WIDTH 13.1 % (11.0-15.5); WHITE BLOOD COUNT (AUTO) 8.7 K/uL (4.8-10.8)
[2024-12-23 15:42] LABS: CREATININE 1.1 mg/dL (0.5-1.3); POTASSIUM 3.8 mmol/L (3.5-5.1)
--- NOTE | 2024-12-23 17:17 | HMCIMG ---
EXAM: CR Chest, 1 View. CLINICAL HISTORY: CHEST TIGHTNESS COMPARISON: None provided. FINDINGS: LUNGS: The lungs show no infiltrate or other acute finding. PLEURAL SPACES: No pleural effusion or pneumothorax. MEDIASTINUM: The cardiomediastinal silhouette is within normal limits. BONES: No acute osseous abnormality. IMPRESSION: No acute cardiopulmonary pathology is evident. /[place]
[2024-12-23 18:10] LABS: APPEARANCE,URINE CLEAR (CLEAR); BILIRUBIN,URINE NEGATIVE (NEGATIVE); COLOR,URINE COLORLESS (YELLOW); GLUCOSE, URINE (UA) NEGATIVE (NEGATIVE); KETONES,URINE NEGATIVE (NEGATIVE); LEUKOCYTE ESTERASE ,URINE NEGATIVE Leu/uL (NEGATIVE); NITRATE,URINE NEGATIVE (NEGATIVE); OCCULT BLOOD,URINE NEGATIVE (NEGATIVE); PROTEIN,URINE NEGATIVE (NEGATIVE); UROBILINOGEN,URINE 0.2 mg/dL (0.2-1.0)
[2024-12-23 18:13] LABS: ADD UA MICROSCOPIC NO
--- NOTE | 2024-12-23 18:28 | ERN ---
General Chief Complaint: Chest Wall Pain Stated Complaint: CHEST TIGHTNESS, DIZZY, HEAFACHE Time Seen by MD: 16:30 Source: patient History of Present Illness Initial Comments 49 y/o male came in for chest pain. Patient he has been having on and off di scomfort for one week. 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 He was evaluated another ER due to a URI symptoms and chest discomfort. He states that he does not have any chest pain at the moment but is concerned because of the chest goes and comes. Allergies: Coded Allergies: No Known Drug Allergies (Unverified Allergy, Unknown, 12/22/19) Home Meds Active Scripts Oseltamivir Phosphate (Tamiflu) 75 Mg Cap, 75 MG PO BID, #6 CAP Prov:BRITTNEY MONTANEZ 06/26/24 Metoprolol Tartrate (Metoprolol Tartrate) 25 Mg Tablet, 6.25 MG PO BID, #60 TAB Prov:RADHATOM PRITCHETT [employer]ABLE [employer]WMI[employer] OPERATOR 05/10/24 Prasugrel HCl (Effient) 10 Mg Tablet, 10 MG PO Q24H, #60 TAB Prov:RADHATOM PRITCHETT PORTABLE SAWMILL OPERATOR 05/10/24 Enalapril Maleate (Enalapril Maleate) 5 Mg Tablet, 2.5 MG PO DAILY, #60 TAB Prov:RADHATOM PRITCHETT 05/10/24 Atorvastatin Calcium (LIPITOR) 40 Mg Tablet, 40 MG PO HS, #60 TAB Prov:RADHATOM PRITCHETT 05/10/24 Aspirin (ASPIRIN 81MG CHEW TAB) 81 Mg Tab.chew, 81 MG PO Q24H, #60 TAB.CHEW Prov:SUMMERTOM Mullen 05/10/24 Past Medical History Past Medical History: High Cholesterol, Heart Disease, Hypertension, [place] Past Surgical History: Cholecystectomy, Other Surgical History Other: STENT Social History Social History: Negative, Lives with family ROS Dictation CONSTITUTIONAL: No chills, no fever, no weakness, no diaphoresis, no malaise. HEAD/FACE: No signs of trauma. EENT: No eye pain, no blurred vision, no tearing, no double vision, no ear pain, no ear discharge, no nose pain, no nasal congestion, no throat pain, no throat swelling, no mouth pain. RESPIRATORY: No cough, no orthopnea, no SOB, no stridor, no wheezing. CARDIOVASCULAR: chest pain, no edema, no palpitations, no syncope. GASTROINTESTINAL/ABDOMINAL: No abdominal pain, no constipation, no diarrhea, no nausea, no vomiting. GENITOURINARY: No abnormal discharge, no dysuria, no frequent urination, no hematuria. No complaints of pain in the genitals. MUSCULOSKELETAL: No back pain, no gout, no joint pain, no joint swelling, muscle pain, no muscle stiffness, no neck pain. INTEGUMENTARY: No change in color, no change in hair/nails, no dryness, no lesion, no lumps, no rash. NEUROLOGICAL/PSYCH: No anxiety, not depressed, no emotional problem, no headache, no numbness, no pre-existing deficit, no history of seizures, no tremors, no weakness. HEMATOLOGIC/LYMPHATIC: Not anemic, no history of blood clots, no apparent bleeding, no bruising, glands not swollen. All Systems Negative, Except as Noted. Physical Exam Physical Exam Dictation VITAL SIGNS: Reviewed. GENERAL APPEARANCE: Alert, oriented x3, no acute distress, obese. HEAD AND FACE: Non-traumatic. EYES: PERRL, pink conjunctivas, eyelid no trauma, anterior chamber clear. EARS: Pinnas intact and no signs of trauma or erythema. Ear canals clear and no discharge. TMs no erythema. NOSE: No discharge, no bleeding. OROPHARYNX: Mouth normal, teeth no caries, tongue pink. Pharynx clear, no erythema. Tonsils no exudates, no abscesses noted. Mucous membrane moist. NECK: Supple, non-tender, no thyromegaly, no masses, no JVD, no bruits. BREAST: Deferred. CHEST: No tenderness, no crepitus, no paradoxical movement, no retractions. LUNGS: Clear, well-ventilated, symmetric, no rales, no wheezing, no rhonchi, no stridor, good breath sounds bilaterally. HEART: Regular rate, regular rhythm, no murmur, no gallops. VASCULAR: No peripheral edema. ABDOMEN: Soft, positive bowel sounds, nondistended, no guarding, nontender, no rebound, no masses no hepatomegaly, no splenomegaly, no Lopez's sign, no hernias. RECTAL: Deferred. GENITAL: Deferred. NEUROLOGICAL: Normal speech, gross motor function intact, gross sensory function intact. MUSCULOSKELETAL: Neck nontender, full range of motion, back nontender, full range of motion. EXTREMITIES: Nontender, full range of motion. SKIN: Color pink, dry, no turgor, no rash, no lacerations, no abrasions, no contusions. LYMPHATICS: Deferred. General Appearance: (+) no apparent distress Neck: (+) normal inspection, (+) supple Respiratory: (+) lungs clear Heart: (+) regular, (+) no gallop Vascular: (+) no edema, (+) normal peripheral pulse Gastrointestinal: (+) soft, (+) non-tender Results Laboratory and Microbiology Lab and Micro Result Laboratory Tests Test 12/23/24 15:27 12/23/24 18:00 12/23/24 18:45 White Blood Count 8.7 K/uL (4.8-10.8) Red Blood Count 4.35 MIL/uL (4.50-6.20) L Hemoglobin 13.5 g/dL (14.0-18.0) L Hematocrit 40.5 % (42-54) L Mean Corpuscular Volume 93.1 fL (79-99) Mean Corpuscular Hemoglobin 31.0 pg (27.0-33.0) Mean Corpuscular Hemoglobin Concent 33.3 g/dL (32.0-36.0) Red Cell Distribution Width 13.1 % (11.0-15.5) Platelet Count 224 K/uL (130-400) Mean Platelet Volume 11.6 fL (7.5-10.5) H Immature Granulocyte % (Auto) 0.1 % (0-1) Neutrophils (%) (Auto) 61.7 % (40.0-77.0) Lymphocytes (%) (Auto) 24.9 % (21.0-51.0) Monocytes (%) (Auto) 8.7 % (3.0-13.0) Eosinophils (%) (Auto) 4.1 % (0.0-8.0) Basophils (%) (Auto) 0.5 % (0.0-5.0) Neutrophils # (Auto) 5.4 K/uL (1.8-7.7) Lymphocytes # (Auto) 2.2 K/uL (1.0-4.8) Monocytes # (Auto) 0.8 K/uL (0.1-1.0) Eosinophils # (Auto) 0.36 K/uL (0.00-0.70) Basophils # (Auto) 0.04 K/uL (0.00-0.20) Absolute Immature Granulocyte (auto 0.01 K/uL (0-1) Nucleated Red Blood Cells 0.0 % (0.0-0.19) Sodium Level 142 mmol/L (136-145) Potassium Level 3.8 mmol/L (3.5-5.1) Chloride Level 102 mmol/L (101-111) Carbon Dioxide Level 31 mmol/L (21-32) Blood Urea Nitrogen 16 mg/dL (7-18) Creatinine 1.1 mg/dL (0.5-1.3) Glomerular Filtration Rate Calc 83 mL/min (>90) Random Glucose 99 mg/dL (70-105) Total Calcium 9.6 mg/dL (8.5-10.1) Troponin I High Sensitivity 6 ng/L (4-75) 7 ng/L (4-75) Urine Color COLORLESS (YELLOW) Urine Appearance CLEAR (CLEAR) Urine pH 6.0 (5.0-8.0) Urine Specific [place] 1.013 (1.001-1.031) Urine Protein NEGATIVE mg/dL (NEGATIVE) Urine Glucose (UA) NEGATIVE mg/dL (NEGATIVE) Urine Ketones NEGATIVE mg/dL (NEGATIVE) Urine Occult Blood NEGATIVE (NEGATIVE) Urine Nitrate NEGATIVE (NEGATIVE) Urine Bilirubin NEGATIVE mg/dL (NEGATIVE) Urine Urobilinogen 0.2 mg/dL (0.2-1.0) Urine Leukocyte Esterase NEGATIVE Jaguar/uL Labs Reviewed?: Yes EKG/XRAY/US/CT/MRI EKG Comment 12/23/2024 time 3:18 p.m. Ventricular rate 61 Sinus rhythm [place] [address] wave elevation or depression MDM MDM: Differential diagnosis: Chest pain, muscle aches, history of CAD Rationale: Tests considered and ordered secondary to shared decision making include: Previous outside records reviewed: Old ER visits. Risk of complication and/or morbidity or mortality of patient management: None Medications-Per medication reconciliation Need for hospitalization: Patient does not meet criteria for hospitalization. Need for emergency major/minor surgery: No Patient [facility] a 49[facility] Per patient he does has stent placement in his concerned he might has a cardiac event. Along with the as he states that he has been having lower left extremity discomfort. He states that the symptoms are on and off are not present at the moment. I advised him we will keep him for further evaluation but she states he wants to go home as he has a follow up appointment with Dr. Morataya in the a.m.. I did tell him he has changed his mind was here for him. ED Course Orders Procedure Category Date Status Time Urinalysis Profile LAB 12/23/24 Complete 15:17 Cbc With Differential LAB 12/23/24 Complete 15:17 Basic Metabolic Panel LAB 12/23/24 Complete 15:17 Troponin I High LAB 12/23/24 Complete Sensitivity 15:17 12 Lead Ekg Tracing- EKG 12/23/24 Complete Technical 15:17 Chest 1vw RAD 12/23/24 Resulted 15:17 Troponin I High LAB 12/23/24 Complete Sensitivity 18:29 Vital Signs Date Time Temp Pulse Resp B/P (MAP) Pulse Ox O2 Delivery O2 Flow Rate FiO2 12/23/24 19:55 97.9 68 16 132/59 97 Room Air* 0 21 12/23/24 18:01 97.9 61 16 143/65 97 Room Air* 0 21 12/23/24 15:14 97.9 61 16 143/85 97 Room Air 0 DX & DISP Disposition: Discharge Departure Impression: Primary Impression: Chest discomfort Additional Impression: History of CAD (coronary artery disease) Condition: Stable Additional Instructions: You have been reviewed in the emergency department at [facility] after presenting with chest pain. After considering your history, your risk factors, your EKG and your blood test troponins, have been found to be at very low risk less than (1 in 100) of having a major adverse cardiac event (like heart attack) in the near future. In the " low risk" group, the risks of doing further tests and treatment as the inpatient outweighs the benefits. In many patients in the low risk group for the test of any sort or unnecessary, however he should discuss this further with his general practitioner who will understand the medical and personal backgrounds better. Because we have never declared you" no risk" we would suggest. 1 returning for medical review if you have further episodes of chest pain/arm pain or other concerning symptoms like dizziness, collapse, palpitations or shortness of breath. 2. Following up with your local doctor who will consider the need for further testing and will also ensure that any modifiable risk factors you may have for heart disease are optimally managed. Patient will be discharged in stable condition at the moment discharge patient states , no chest pain Referrals: RANI KIRAN MD (PCP) Time of Disposition: 20:05 FENG MAR MD Dec 23, 2024 18:28 FELICIA COVINGTON MD Dec 23, 2024 19:56
[2024-12-23 19:55] VITALS: BP 132/59; PULSE 68; RESP 16; TEMP 97.9; O2SAT 97
== END 2024-12-23 20:06 | disposition home or self-care (01) ==
LOC: EDH 15:13
DX: R07.89 Other chest pain (principal); I25.10 Atherosclerotic heart disease of native coronary artery without angina pectoris; I11.9 Hypertensive heart disease without heart failure; E78.00 Pure hypercholesterolemia, unspecified; I25.2 Old myocardial infarction; Z79.02 Long term (current) use of antithrombotics/antiplatelets; Z79.82 Long term (current) use of aspirin; Z79.899 Other long term (current) drug therapy; Z90.49 Acquired absence of other specified parts of digestive tract
CPT/HCPCS: 36415; 71045; 80048; 81003; 84484; 85025; 93005; 99284

== ENCOUNTER 2025-06-19 20:15 | Emergency (ER) | payer BC ==
[~2025-06-19] VITALS: Ht 170.2 cm; Wt 90.7 kg
[~2025-06-19 20:15] MED LIST changes: +AMLO-257 PO; -ENAL-87 PO; -OSEL75 PO
--- NOTE | 2025-06-19 20:25 | ERN ---
General Chief Complaint: Multiple Complaints Stated Complaint: N/V/D/ABD PAIN, FEVER Time Seen by MD: 20:17 Source: patient History of Present Illness Initial Comments PATIENT IS A 50-YEAR-OLD MALE COMING IN WITH MULTIPLE COMPLAINTS. PER PATIENT HE HAS BEEN HAVING NAUSEOUSNESS BELCHING DIARRHEA AND FEVER. PATIENT HAS A RECENT CABG. Allergies: Coded Allergies: No Known Drug Allergies (Unverified Allergy, Unknown, 12/22/19) Home Meds Active Scripts Acetaminophen (Tylenol) 500 Mg Tab, 1 TAB PO Q6HPRN PRN for pain or fever for 5 Days, #30 TAB 0 Refills Prov:FELICIA COVINGTON MD 06/19/25 Oseltamivir Phosphate (Tamiflu) 75 Mg Cap, 1 CAP PO BID for 5 Days, #10 CAP 0 Refills Prov:FELICIA COVINGTON MD 06/19/25 Metoprolol Tartrate (Metoprolol Tartrate) 25 Mg Tablet, 6.25 MG PO BID, #60 TAB Prov:[facility] 05/10/24 Prasugrel HCl (Effient) 10 Mg Tablet, 10 MG PO Q24H, #60 TAB Prov:TOM VEL[facility]DE [facility] 05/10/24 Atorvastatin Calcium (LIPITOR) 40 Mg Tablet, 40 MG PO HS, #60 TAB Prov:TOM VEL[facility]DE [facility] 05/10/24 Aspirin (ASPIRIN 81MG CHEW TAB) 81 Mg Tab.chew, 81 MG PO Q24H, #60 TAB.CHEW Prov:[facility] 05/10/24 Reported Medications Amlodipine Besylate (Amlodipine Besylate) 5 Mg Tablet, 1 TAB PO DAILY for 30 Days, #30 TAB 0 Refills 05/14/25 Past Medical History Past Medical History: High Cholesterol, Heart Disease, Hypertension, [place] Past Surgical History: Cholecystectomy, CABG Surgical History Other: HEART STENT X3, CABG X2 05/16/25 Social History Social History: Negative, Lives with family ROS Dictation CONSTITUTIONAL: NO CHILLS, NO FEVER, NO WEAKNESS, NO DIAPHORESIS, NO MALAISE. HEAD/FACE: NO SIGNS OF TRAUMA. EENT: NO EYE PAIN, NO BLURRED VISION, NO TEARING, NO DOUBLE VISION, NO EAR PAIN, NO EAR DISCHARGE, NO NOSE PAIN, NO NASAL CONGESTION, NO THROAT PAIN, NO THROAT SWELLING, NO MOUTH PAIN. RESPIRATORY: NO COUGH, NO ORTHOPNEA, NO SOB, NO STRIDOR, NO WHEEZING. CARDIOVASCULAR: NO CHEST PAIN, NO EDEMA, NO PALPITATIONS, NO SYNCOPE. GASTROINTESTINAL/ABDOMINAL: NO ABDOMINAL PAIN, NO CONSTIPATION, DIARRHEA, NAUSEA, VOMITING. GENITOURINARY: NO ABNORMAL DISCHARGE, NO DYSURIA, NO FREQUENT URINATION, NO HEMATURIA. NO COMPLAINTS OF PAIN IN THE GENITALS. MUSCULOSKELETAL: NO BACK PAIN, NO GOUT, NO JOINT PAIN, NO JOINT SWELLING, NO MUSCLE PAIN, NO MUSCLE STIFFNESS, NO NECK PAIN. INTEGUMENTARY: NO CHANGE IN COLOR, NO CHANGE IN HAIR/NAILS, NO DRYNESS, NO LESION, NO LUMPS, NO RASH. NEUROLOGICAL/PSYCH: NO ANXIETY, NOT DEPRESSED, NO EMOTIONAL PROBLEM, NO HEADACHE, NO NUMBNESS, NO PRE-EXISTING DEFICIT, NO HISTORY OF SEIZURES, NO TREMORS, NO WEAKNESS. HEMATOLOGIC/LYMPHATIC: NOT ANEMIC, NO HISTORY OF BLOOD CLOTS, NO APPARENT BLEEDING, NO BRUISING, GLANDS NOT SWOLLEN. ALL SYSTEMS NEGATIVE, EXCEPT NOTED. Physical Exam Physical Exam Dictation VITAL SIGNS: REVIEWED. GENERAL APPEARANCE: ALERT, ORIENTED X3, NO ACUTE DISTRESS, OBESE. HEAD AND FACE: NON-TRAUMATIC. EYES: PERRL, PINK CONJUNCTIVAS, EYELID NO TRAUMA, ANTERIOR CHAMBER CLEAR. EARS: PINNAS INTACT AND NO SIGNS OF TRAUMA OR ERYTHEMA. EAR CANALS CLEAR AND NO DISCHARGE. TMS NO ERYTHEMA. NOSE: NO DISCHARGE, NO BLEEDING. OROPHARYNX: MOUTH NORMAL, TEETH NO CARIES, TONGUE PINK. PHARYNX CLEAR, NO ERYTHEMA. TONSILS NO EXUDATES, NO ABSCESSES NOTED. MUCOUS MEMBRANE MOIST. NECK: SUPPLE, NON-TENDER, NO THYROMEGALY, NO MASSES, NO JVD, NO BRUITS. BREAST: DEFERRED. CHEST: NO TENDERNESS, NO CREPITUS, NO PARADOXICAL MOVEMENT, NO RETRACTIONS. LUNGS: CLEAR, WELL-VENTILATED, SYMMETRIC, NO RALES, NO WHEEZING, NO RHONCHI, NO STRIDOR, GOOD BREATH SOUNDS BILATERALLY. HEART: REGULAR RATE, REGULAR RHYTHM, NO MURMUR, NO GALLOPS. VASCULAR: NO PERIPHERAL EDEMA. ABDOMEN: SOFT, POSITIVE BOWEL SOUNDS, NONDISTENDED, NO GUARDING, NONTENDER, NO REBOUND, NO MASSES NO HEPATOMEGALY, NO SPLENOMEGALY, NO PATRICK'S SIGN, NO HERNIAS. RECTAL: DEFERRED. GENITAL: DEFERRED. NEUROLOGICAL: NORMAL SPEECH, GROSS MOTOR FUNCTION INTACT, GROSS SENSORY FUNCTION INTACT. MUSCULOSKELETAL: NECK NONTENDER, FULL RANGE OF MOTION, BACK NONTENDER, FULL RANGE OF MOTION. EXTREMITIES: NONTENDER, FULL RANGE OF MOTION. SKIN: COLOR PINK, DRY, NO TURGOR, NO RASH, NO LACERATIONS, NO ABRASIONS, NO CONTUSIONS. LYMPHATICS: DEFERRED. Results Laboratory and Microbiology Lab and Micro Result Laboratory Tests Test 06/19/25 20:57 06/19/25 21:53 06/19/25 22:36 White Blood Count 14.1 K/uL (4.8-10.8) H Red Blood Count 4.19 MIL/uL (4.50-6.20) L Hemoglobin 12.8 g/dL (14.0-18.0) L Hematocrit 39.5 % (42-54) L Mean Corpuscular Volume 94.3 fL (79-99) Mean Corpuscular Hemoglobin 30.5 pg (27.0-33.0) Mean Corpuscular Hemoglobin Concent 32.4 g/dL (32.0-36.0) Red Cell Distribution Width 12.9 % (11.0-15.5) Platelet Count 195 K/uL (130-400) Mean Platelet Volume 11.5 fL (7.5-10.5) H Immature Granulocyte % (Auto) 0.3 % (0-1) Neutrophils (%) (Auto) 90.3 % (40.0-77.0) H Lymphocytes (%) (Auto) 5.1 % (21.0-51.0) L Monocytes (%) (Auto) 3.3 % (3.0-13.0) Eosinophils (%) (Auto) 0.9 % (0.0-8.0) Basophils (%) (Auto) 0.1 % (0.0-5.0) Neutrophils # (Auto) 12.7 K/uL (1.8-7.7) H Lymphocytes # (Auto) 0.7 K/uL (1.0-4.8) L Monocytes # (Auto) 0.5 K/uL (0.1-1.0) Eosinophils # (Auto) 0.13 K/uL (0.00-0.70) Basophils # (Auto) 0.02 K/uL (0.00-0.20) Absolute Immature Granulocyte (auto 0.04 K/uL (0-1) Nucleated Red Blood Cells 0.0 % (0.0-0.19) White Cell Morphology Comment See comments Sodium Level 137 mmol/L (136-145) Potassium Level 3.8 mmol/L (3.5-5.1) Chloride Level 101 mmol/L (101-111) Carbon Dioxide Level 29 mmol/L (21-32) Blood Urea Nitrogen 13 mg/dL (7-18) Creatinine 1.2 mg/dL (0.5-1.3) Glomerular Filtration Rate Calc 74 mL/min (>90) Random Glucose 109 mg/dL (70-105) H Total Calcium 8.9 mg/dL (8.5-10.1) Total Bilirubin 0.9 mg/dL (0.2-1.0) Aspartate Amino Transf (AST/SGOT) 29 U/L (10-37) Alanine Aminotransferase (ALT/SGPT) 44 U/L (12-78) Alkaline Phosphatase 103 U/L (50-136) Troponin I High Sensitivity 5 ng/L (4-75) Total Protein 7.9 g/dL (6.0-8.3) Albumin 3.9 g/dL (3.5-5.0) Influenza Type A Antigen Negative For Type A Influenza Type B Antigen Positive For Type B SARS-CoV-2, RNA, NAAT NEGATIVE SARS CoV-2 Urine Color LIGHT-YELLOW (YELLOW) Urine Appearance CLEAR (CLEAR) Urine pH 5.5 (5.0-8.0) Urine Specific [place] 1.017 (1.001-1.031) Urine Protein NEGATIVE mg/dL (NEGATIVE) Urine Glucose (UA) NEGATIVE mg/dL (NEGATIVE) Urine Ketones NEGATIVE mg/dL (NEGATIVE) Urine Occult Blood +- (TRACE) (NEGATIVE) H Urine Nitrate NEGATIVE (NEGATIVE) Urine Bilirubin NEGATIVE mg/dL (NEGATIVE) Urine Urobilinogen 0.2 mg/dL (0.2-1.0) Urine Leukocyte Esterase NEGATIVE Jaguar/uL Urine RBC 2-5 /HPF (0-1) H Urine WBC 0-1 /HPF (0-1) Urine Squamous Epithelial Cells RARE /HPF (0-2) Urine Bacteria None /HPF (None Seen) Labs Reviewed?: Yes EKG/XRAY/US/CT/MRI EKG Comment 06/19/2025 TIME 8:45 P.M. VENTRICULAR RATE 95 SINUS RHYTHM IA 128 T WAVE INVERSION V2 V3 V4 V5 V6 EKG 2. 06/19/2025 TIME 11:34 P.M. VENTRICULAR RATE 87 SINUS RHYTHM [place] [address] WAVE ELEVATION OR DEPRESSION MDM MDM: DIFFERENTIAL DIAGNOSIS: INFLUENZA B, URI, VIRAL GASTROENTERITIS, RATIONALE: TESTS CONSIDERED AND ORDERED SECONDARY TO SHARED DECISION MAKING INCLUDE: PREVIOUS OUTSIDE RECORDS REVIEWED: OLD ER VISITS. RISK OF COMPLICATION AND/OR MORBIDITY OR MORTALITY OF PATIENT MANAGEMENT: NONE MEDICATIONS-PER MEDICATION RECONCILIATION NEED FOR HOSPITALIZATION: PATIENT DOES NOT MEET CRITERIA FOR HOSPITALIZATION. NEED FOR EMERGENCY MAJOR/MINOR SURGERY: NO PATIENT IS A 50-YEAR-OLD GENTLEMAN COMING IN COMPLAINING OF NAUSEOUSNESS AND DIARRHEA. LABORATORY WORKUP POSITIVE FOR INFLUENZA B MILDLY ELEVATED WHITE BLOOD CELL COUNT BUT PATIENT IS FEELING MUCH BETTER WE WILL BE DISCHARGED IN STABLE CONDITION WITH TAMIFLU. I DID ADVISED HIM APPROPRIATE FOLLOW UP WITH PCP. I ALSO ADVISED HIM DRINKING PLENTY OF WATER TO HELP WITH THE VIRAL INFECTION. ED Course Orders Procedure Category Date Status Time Cbc With Differential LAB 06/19/25 Complete 20:22 Comprehensive LAB 06/19/25 Complete Metabolic Panel 20:22 Troponin I High LAB 06/19/25 Complete Sensitivity 20:22 Urinalysis Profile LAB 06/19/25 Complete 20:22 12 Lead Ekg Tracing- EKG 06/19/25 Complete Technical 20:22 Acetaminophen 325 Tab PHA 06/19/25 Complete (Tylenol 325mg Tab 20:30 Ondansetron 4mg Inj PHA 06/19/25 Complete (Zofran 4mg Inj) 20:30 Pantoprazole 40mg Inj PHA 06/19/25 Complete (Protonix 40mg Inj 20:30 Influenza Type A & B, LAB 06/19/25 Complete Rapid 20:22 Covid Rna Naat LAB 06/19/25 Complete 20:22 12 Lead Ekg Tracing- EKG 06/19/25 Logged Technical 23:31 Oseltamivir Phosphate PHA 06/20/25 Verified (Tamiflu) 00:00 Current Medications Medications (Trade) Dose Ordered Sig/Fernando Route PRN Reason Start Time Stop Time Status Last Admin Dose Admin Acetaminophen (TYLenol 325MG TAB) 650 mg ONCE ONCE PO 06/19/25 20:30 06/19/25 20:31 DC 06/19/25 22:59 Ondansetron HCl (zoFRAN 4MG INJ) 4 mg ONCE ONCE IVP 06/19/25 20:30 06/19/25 20:31 DC 06/19/25 22:59 Pantoprazole Sodium (PROTonix 40MG INJ) 40 mg ONCE ONCE IVP 06/19/25 20:30 06/19/25 20:31 DC 06/19/25 22:59 Vital Signs Date Time Temp Pulse Resp B/P (MAP) Pulse Ox O2 Delivery O2 Flow Rate FiO2 06/19/25 22:59 102.4 06/19/25 22:28 102.4 94 17 110/75 100 Room Air* 0 21 06/19/25 20:16 100.6 101 18 120/74 96 Room Air 0 DX & DISP Disposition: Discharge Departure Impression: Primary Impression: Influenza B Additional Impression: Viral gastroenteritis Condition: Stable Scripts Acetaminophen (Tylenol) 500 Mg Tab 1 TAB PO Q6HPRN PRN for pain or fever for 5 Days, #30 TAB 0 Refills Prov: FELICIA COVINGTON MD 06/19/25 Oseltamivir Phosphate (Tamiflu) 75 Mg Cap 1 CAP PO BID for 5 Days, #10 CAP 0 Refills Prov: FELICIA COVINGTON MD 06/19/25 Additional Instructions: FOLLOW-UP WITH PRIMARY CARE PROVIDER IN 1 TO 2 DAYS. TAKE MEDICATIONS DIRECTED HERE IN THE EMERGENCY ROOM. OKAY TO CONTINUE HOME MEDICATIONS UNLESS OTHERWISE DISCUSSED DURING YOUR VISIT IN THE EMERGENCY ROOM TODAY. RETURN TO YOUR NEAREST EMERGENCY ROOM IF SYMPTOMS WORSEN OR IF THERE IS NO IMPROVEMENT. CALL 911 IF YOU NEED IMMEDIATE ASSISTANCE. TAKE TYLENOL [id number] NEEDED AND IF NO CONTRAINDICATIONS ARE PRESENT. INCREASE ORAL HYDRATION. A WOUND CULTURE OR URINE CULTURE WAS ORDERED HERE IN THE EMERGENCY ROOM DEPARTMENT PLEASE FOLLOW-UP WITH PRIMARY CARE PROVIDER AND ADVISE THEM TO GET REPORTS FROM OUR FACILITY. IF YOU HAD ANY ALIVIA WRAP/SPLINTS THAT WERE APPLIED HERE, PLEASE DO NOT REMOVE THEM UNTIL YOU SEE YOUR PRIMARY CARE OR SPECIALTY. REFERRALS: Referrals: RANI KIRAN MD (PCP) Time of Disposition: 23:11 FELICIA COVINGTON MD Jun 19, 2025 20:25
[2025-06-19 21:03] LABS: IMMATURE GRANULOCYTE ABSOLUTE 0.04 K/uL (0-1); NUCLEATED RED BLOOD CELLS 0.0 % (0.0-0.19); PLATELET COUNT (AUTO) 195 K/uL (130-400); RED BLOOD CELL COUNT(AUTO) 4.19 MIL/uL (4.50-6.20); RED CELL DISTRIBUTION WIDTH 12.9 % (11.0-15.5); WHITE BLOOD COUNT (AUTO) 14.1 K/uL (4.8-10.8)
[2025-06-19 21:17] LABS: CREATININE 1.2 mg/dL (0.5-1.3); GLOMERULAR FILTR. RATE CALC 74.0 mL/min (>90); GLUCOSE,RANDOM 109.0 mg/dL (70-105); SODIUM SERUM 137.0 mmol/L (136-145); UREA NITROGEN, BLOOD 13.0 mg/dL (7-18)
[2025-06-19 21:26] LABS: ASPARTATE AMINOTRANSFERASE 29.0 U/L (10-37); TOTAL PROTEIN, SERUM 7.9 g/dL (6.0-8.3)
--- NOTE | 2025-06-19 21:48 | NUR ---
PT PLACED IN ED ROOM 10. PT CARE ASSUMED AT THIS TIME.
[2025-06-19 22:21] LABS: SARS-CoV-2, RNA, NAAT NEGATIVE SARS CoV-2 (NEGATIVE)
[2025-06-19 22:24] LABS: INFLUENZA TYPE A Negative For Type A (NEGATIVE)
[2025-06-19 22:50] LABS: INFLUENZA TYPE B Positive For Type B (NEGATIVE)
[2025-06-19 23:04] LABS: APPEARANCE,URINE CLEAR (CLEAR); GLUCOSE, URINE (UA) NEGATIVE (NEGATIVE); LEUKOCYTE ESTERASE ,URINE NEGATIVE Leu/uL (NEGATIVE); NITRATE,URINE NEGATIVE (NEGATIVE); OCCULT BLOOD,URINE +- (TRACE) (NEGATIVE)
[2025-06-19 23:06] LABS: ADD UA MICROSCOPIC YES
[2025-06-19 23:08] LABS: SQUAMOUS EPITHELIAL CELL,UR RARE /HPF (0-2)
[2025-06-19] MEDS ORDERED: ACET-66 PO (23:12)
[2025-06-19] MEDS ORDERED: OSEL75 PO (23:12)
--- NOTE | 2025-06-19 23:43 | EKG ---
[facility] Test Date: 2025-06-19 Test Time: 23:34:32 Pat Name: LOREN GUERRERO Department: [facility] Room: Gender: M Intelligence Clerk: [id number] : 1975 Requested By: FELICIA COVINGTON Order Number: [id number] Reading MD: Ely Trinidad Measurements Intervals [place] Rate: 87 P: 33 [place]: 147 QRS: -21 QRSD: 85 T: 150 QT: 388 QTc: 466 Interpretive Statements Sinus rhythm Probable inferior infarct, old Nonspecific T abnormalities, lateral leads Compared to ECG 05/16/2025 12:50:32 Myocardial infarct finding now present T-wave abnormality still present Electronically Signed On 06-23-2025 08:52:50 INDUSTRIAL CHEMISTRY TEACHER by Ely Trinidad Please click the below link to view image of tracing.
[2025-06-19] MEDS: OSELTAMIVIR PHOSPHATE 75 MG CAP PO ONE (23:51)
[2025-06-20 00:26] VITALS: BP 97/62; PULSE 82; RESP 15; TEMP 99.8; O2SAT 100
[2025-06-20 00:28] VITALS: TEMP 99.8
--- NOTE | 2025-06-20 11:18 | EKG ---
[facility] Test Date: 2025-06-19 Test Time: 20:45:43 Pat Name: LOREN GUERRERO Department: [facility] Room: Gender: M Body Work Auto Trimmer: [id number] : 1975 Requested By: FELICIA COVINGTON Order Number: [id number] Reading MD: Ely Trinidad Measurements Intervals [place] Rate: 95 P: 32 [place]: 128 QRS: 7 QRSD: 85 T: 151 QT: 357 QTc: 449 Interpretive Statements Sinus rhythm Inferior infarct, old Abnrm T, consider ischemia, anterolateral lds Compared to ECG 05/16/2025 12:50:32 Myocardial infarct finding now present Possible ischemia now present T-wave abnormality no longer present Electronically Signed On 06-23-2025 08:52:37 ELEVATOR STARTER by Ely Trinidad Please click the below link to view image of tracing.
== END 2025-06-20 00:28 | disposition home or self-care (01) ==
LOC: EDH 20:15
DX: J10.1 Influenza due to other identified influenza virus with other respiratory manifestations (principal); A08.4 Viral intestinal infection, unspecified; I11.9 Hypertensive heart disease without heart failure; E78.00 Pure hypercholesterolemia, unspecified; I25.2 Old myocardial infarction; Z79.899 Other long term (current) drug therapy; Z79.82 Long term (current) use of aspirin; Z90.49 Acquired absence of other specified parts of digestive tract; Z95.5 Presence of coronary angioplasty implant and graft; Z95.1 Presence of aortocoronary bypass graft; Z20.822 Contact with and (suspected) exposure to COVID-19
CPT/HCPCS: 99284; 96374; 87635; 96375; 84484; 80053; 85025; 87804 ×2; 81001; 36415; 93005 ×2; J2405; J2470